=== PATIENT | female | born 1970 | race Caucasian/White ===

== ENCOUNTER 2018-07-02 14:16 | Emergency (ER) | payer OTHER ==
[~2018-07-02] VITALS: Ht 175.3 cm; Wt 108.4 kg
[2018-07-02 14:50] LABS: Source, Urine Clean Catch
[2018-07-02 14:55] LABS: Blood, Urine 1+ (Neg); Glucose Qualitative, Urine Neg (Neg); Ketones, Urine 1+ (Neg); Leukocyte Esterase, Urine 1+ (Neg); Nitrite, Urine Neg (Neg); Protein, Urine 2+ (Neg); Specific Gravity, Urine 1.015 (1.003-1.022); Urobilinogen, Urine 3+ (Normal)
[2018-07-02 15:01] LABS: BASOPHILS ABSOLUTE AUTO 0.03 K/mm3 (0.00-0.23); BASOPHILS PERCENT AUTO 1 % (0-2); EOSINOPHILS ABSOLUTE AUTO 0.05 K/mm3 (0.00-0.68); EOSINOPHILS PERCENT AUTO 1 % (0-6); Hematocrit 43.8 % (33.0-51.0); Hemoglobin 14.8 g/dL (11.5-16.0); IMMATURE GRAN ABSOLUTE AUTO 0.01 K/mm3 (0.00-0.10); IMMATURE GRAN PERCENT AUTO 0 % (0-1); LYMPHOCYTES ABSOLUTE AUTO 1.28 K/mm3 (0.84-5.20); LYMPHOCYTES PERCENT AUTO 31 % (21-46); MONOCYTES ABSOLUTE AUTO 0.41 K/mm3 (0.16-1.47); MONOCYTES PERCENT AUTO 10 % (4-13); Mean Corpuscular HGB 39.8 pg (26.0-34.0); Mean Corpuscular HGB Conc 33.8 g/dL (31.5-36.5); Mean Corpuscular Volume 118 fL (80-100); Mean Platelet Volume 9.2 fL (9.1-12.4); NEUTROPHILS ABSOLUTE AUTO 2.37 K/mm3 (1.96-9.15); NEUTROPHILS PERCENT AUTO 57 % (41-73); Platelet Count 98 K/mm3 (150-400); RDW Coefficient Variation 15.3 % (11.7-14.2); Red Blood Cell Count 3.72 M/mm3 (3.80-5.20); White Blood Cell Count 4.15 K/mm3 (4.00-11.30)
[2018-07-02 15:08] LABS: Appearance, Urine Clear (Clear); Bilirubin, Urine 1+ (Neg); Color, Urine Amber (P-Yellow); U Amphetamine Screen Not Detected; U Barbituate Screen Not Detected; U Benzodiazapine Screen Not Detected; U Buprenorphine Screen Not Detected; U Cannabinoids Screen Not Detected; U Cocaine Screen Not Detected; U Methadone Screen Not Detected; U Methamphetamine Screen Not Detected; U Opiates Screen Not Detected; U Oxycodone Screen Not Detected; U Phencyclidine Screen Not Detected; U Propoxyphene Screen Not Detected
[2018-07-02 15:26] LABS: Alanine Aminotransfer (ALT/SGP 234 U/L (12-78); Albumin, Blood 3.6 g/dL (3.4-5.0); Albumin/Globulin Ratio 0.9 (0.8-1.8); Alk Phos 261 U/L (50-136); Anion Gap 18 mmol/L (6-16); Aspartate Aminotrans (AST/SGOT 567 U/L (12-37); Bilirubin, Total 1.7 mg/dL (0.1-1.0); Blood Urea Nitrogen 9 mg/dL (8-24); Bun/Creatinine Ratio 10.5 (12.0-20.0); CO2, Blood 23 mmol/L (21-32); Calcium, Blood 8.6 mg/dL (8.5-10.1); Chloride, Blood 100 mmol/L (98-108); Creatinine, Blood 0.86 mg/dL (0.40-1.00); Ethanol (Alcohol), Blood, Med 218 mg/dL; Globulin, Blood 3.9 g/dL (2.2-4.0); Glomerular Filtration Rate >60 (60-); Glucose, Blood 106 mg/dL (70-99); Potassium, Blood 4.2 mmol/L (3.5-5.5); Salicylate <1.7 mg/dL (2.8-20.0); Sodium, Blood 141 mmol/L (136-145); Total Protein, Blood 7.5 g/dL (6.4-8.2)
[2018-07-02 15:31] LABS: Acetaminophen, Random <2.0 ug/mL (10.0-30.0)
[2018-07-02 15:38] LABS: Red Blood Cells, Urine 0-2 /hpf (0-2); Squamous Epithelial Cells Few /hpf (Few); White Blood Cells, Urine 0-2 /hpf (0-5)
[2018-07-02 15:39] LABS: Bacteria Mod /hpf
[2018-07-02] MEDS ORDERED: BENZ100A PO (17:08)
[2018-07-02] MEDS ORDERED: Anti-Diarrhea2 MG PO (17:09)
[2018-07-02] MEDS ORDERED: Ipratropium Bro15 ML INH (17:09)
[2018-07-02] MEDS ORDERED: GUAI600T33 PO (17:10)
[2018-07-02] MEDS ORDERED: ONDA4 PO (17:10)
[2018-07-02] MEDS ORDERED: OXYC5 PO (17:11)
[2018-07-02] MEDS ORDERED: ONDA4ODT MM (17:19)
[2018-07-02] MEDS ORDERED: CHLO25 PO (17:19)
[2018-07-02] MEDS ORDERED: CITA20 PO (17:19)
[2018-07-02] MEDS ORDERED: Neurontin 100100 MG PO (17:20)
== END 2018-07-02 18:00 | disposition home or self-care (01) ==
LOC: ER 14:16
PROVIDERS: Physician Assistant
DX: F32.9 Major depressive disorder, single episode, unspecified (principal); F10.229 Alcohol dependence with intoxication, unspecified; Y90.7 Blood alcohol level of 200-239 mg/100 ml
CPT/HCPCS: 36415; 80053; 81001; 81025; 84443; 85025; 87086; 93005; 93010; 99285-25; G0480; Q3014

== ENCOUNTER → 2020-03-11 | Outpatient (CLI) | payer OTHER ==
[~2020-03-11] MED LIST: Anti-Diarrhea2 MG PO; BENZ100A PO; CHLO25 PO; CITA20 PO; GUAI600T33 PO; Ipratropium Bro15 ML INH; Neurontin 100100 MG PO; ONDA4 PO; ONDA4ODT MM; OXYC5 PO
== END | disposition home or self-care (01) ==
LOC: LAB SHORT 10:15 → LAB 10:15
DX: N30.90 Cystitis, unspecified without hematuria (principal)
CPT/HCPCS: 87077; 87086; 87186

== ENCOUNTER 2020-08-02 15:43 | Observation (INO) | payer OTHER ==
[~2020-08-02] VITALS: Ht 172.7 cm; Wt 88.5 kg
[2020-08-02 16:37] LABS: BASOPHILS ABSOLUTE AUTO 0.04 K/mm3 (0.00-0.23); BASOPHILS PERCENT AUTO 1 % (0-2); EOSINOPHILS ABSOLUTE AUTO 0.09 K/mm3 (0.00-0.68); EOSINOPHILS PERCENT AUTO 1 % (0-6); Hematocrit 44.9 % (33.0-51.0); Hemoglobin 14.9 g/dL (11.5-16.0); IMMATURE GRAN ABSOLUTE AUTO 0.01 K/mm3 (0.00-0.10); IMMATURE GRAN PERCENT AUTO 0 % (0-1); LYMPHOCYTES ABSOLUTE AUTO 3.24 K/mm3 (0.84-5.20); LYMPHOCYTES PERCENT AUTO 43 % (21-46); MONOCYTES ABSOLUTE AUTO 0.37 K/mm3 (0.16-1.47); MONOCYTES PERCENT AUTO 5 % (4-13); Mean Corpuscular HGB 31.1 pg (26.0-34.0); Mean Corpuscular HGB Conc 33.2 g/dL (31.5-36.5); Mean Corpuscular Volume 94 fL (80-100); Mean Platelet Volume 8.8 fL (9.1-12.4); NEUTROPHILS ABSOLUTE AUTO 3.81 K/mm3 (1.96-9.15); NEUTROPHILS PERCENT AUTO 50 % (41-73); Platelet Count 263 K/mm3 (150-400); RDW Coefficient Variation 14.3 % (11.7-14.2); RDW Standard Deviation 49.7 fL (35.1-46.3); Red Blood Cell Count 4.79 M/mm3 (3.80-5.20); White Blood Cell Count 7.56 K/mm3 (4.00-11.30)
[2020-08-02 17:33] LABS: Alanine Aminotransfer (ALT/SGP 23 U/L (12-78); Albumin, Blood 3.9 g/dL (3.4-5.0); Alk Phos 106 U/L (50-136); Anion Gap 6 mmol/L (6-16); Aspartate Aminotrans (AST/SGOT 19 U/L (12-37); Bilirubin, Total 0.3 mg/dL (0.1-1.0); Blood Urea Nitrogen 16 mg/dL (8-24); Bun/Creatinine Ratio 20.1 (12.0-20.0); CO2, Blood 26 mmol/L (21-32); Calcium, Blood 8.4 mg/dL (8.5-10.1); Chloride, Blood 110 mmol/L (98-108); Ethanol (Alcohol), Blood, Med 496 mg/dL; Globulin, Blood 3.9 g/dL (2.2-4.0); Glomerular Filtration Rate >60 (60-); Glucose, Blood 127 mg/dL (70-99); Potassium, Blood 3.7 mmol/L (3.5-5.5); Salicylate 2.2 mg/dL (2.8-20.0); Sodium, Blood 142 mmol/L (136-145); Total Protein, Blood 7.8 g/dL (6.4-8.2)
[2020-08-02 17:34] LABS: Acetaminophen, Random <2.0 ug/mL (10.0-30.0)
[2020-08-02] MEDS ORDERED: TRAZ50 PO (18:39)
[2020-08-02] MEDS ORDERED: CITA20 PO (18:39)
[2020-08-03 01:28] LABS: Source, Urine Clean Catch
[2020-08-03 01:32] LABS: Bilirubin, Urine Neg (Neg); Blood, Urine 1+ (Neg); Glucose Qualitative, Urine Neg (Neg); Ketones, Urine Neg (Neg); Leukocyte Esterase, Urine 2+ (Neg); Nitrite, Urine Neg (Neg); Protein, Urine Neg (Neg); Specific Gravity, Urine 1.015 (1.003-1.022); Urobilinogen, Urine NORM (Normal)
[2020-08-03 01:33] LABS: Appearance, Urine Clear (Clear); Color, Urine Yellow (P-Yellow)
[2020-08-03 01:40] LABS: Bacteria Mod /hpf; Red Blood Cells, Urine 0-2 /hpf (0-2); Squamous Epithelial Cells Few /hpf (Few)
[2020-08-03 01:42] LABS: U Amphetamine Screen Not Detected; U Barbituate Screen Not Detected; U Benzodiazapine Screen Not Detected; U Buprenorphine Screen Not Detected; U Cannabinoids Screen Not Detected; U Cocaine Screen Not Detected; U Methadone Screen Not Detected; U Methamphetamine Screen Not Detected; U Opiates Screen Not Detected; U Oxycodone Screen Not Detected; U Phencyclidine Screen Not Detected; U Propoxyphene Screen Not Detected
[2020-08-04 11:52] LABS: Influenza A, PCR NEGATIVE (NEGATIVE); Influenza B, PCR NEGATIVE (NEGATIVE); Resp Syncytial Virus, PCR NEGATIVE (NEGATIVE); SARS-Cov-2 (COVID-19) PCR, MMC NEGATIVE (NEGATIVE)
== END 2020-08-04 14:15 ==
LOC: ER 15:43 → EOR 15:44
PROVIDERS: Emergency Medicine; Physician Assistant; ADMIT Emergency Medicine
DX: F33.2 Major depressive disorder, recurrent severe without psychotic features (principal); R45.851 Suicidal ideations; F10.229 Alcohol dependence with intoxication, unspecified; F10.239 Alcohol dependence with withdrawal, unspecified; I10 Essential (primary) hypertension; Z20.822 Contact with and (suspected) exposure to COVID-19; Z59.0 Homelessness
CPT/HCPCS: 0241U; 36415; 80053; 81001; 81025; 85025; 87086; 99285; A9270; G0378; G0480; Q3014

== ENCOUNTER 2020-08-16 17:10 | Observation (INO) | payer OTHER ==
[~2020-08-16] VITALS: Ht 175.3 cm; Wt 120.2 kg
[~2020-08-16 17:10] MED LIST changes: +TRAZ50 PO
[2020-08-16] MEDS ORDERED: ARIP10 PO (17:57)
[2020-08-16] MEDS ORDERED: Vivitrol380 MG (17:58)
[2020-08-16 18:10] LABS: BASOPHILS ABSOLUTE AUTO 0.03 K/mm3 (0.00-0.23); BASOPHILS PERCENT AUTO 1 % (0-2); EOSINOPHILS PERCENT AUTO 2 % (0-6); Hematocrit 42.9 % (33.0-51.0); Hemoglobin 14.2 g/dL (11.5-16.0); IMMATURE GRAN ABSOLUTE AUTO 0.02 K/mm3 (0.00-0.10); IMMATURE GRAN PERCENT AUTO 0 % (0-1); LYMPHOCYTES ABSOLUTE AUTO 1.69 K/mm3 (0.84-5.20); LYMPHOCYTES PERCENT AUTO 28 % (21-46); MONOCYTES ABSOLUTE AUTO 0.37 K/mm3 (0.16-1.47); MONOCYTES PERCENT AUTO 6 % (4-13); Mean Corpuscular HGB 31.1 pg (26.0-34.0); Mean Corpuscular HGB Conc 33.1 g/dL (31.5-36.5); Mean Corpuscular Volume 94 fL (80-100); Mean Platelet Volume 9.1 fL (9.1-12.4); NEUTROPHILS ABSOLUTE AUTO 3.84 K/mm3 (1.96-9.15); NEUTROPHILS PERCENT AUTO 64 % (41-73); Platelet Count 201 K/mm3 (150-400); RDW Coefficient Variation 13.4 % (11.7-14.2); RDW Standard Deviation 46.5 fL (35.1-46.3); Red Blood Cell Count 4.56 M/mm3 (3.80-5.20); White Blood Cell Count 6.05 K/mm3 (4.00-11.30)
[2020-08-16 18:56] LABS: Alanine Aminotransfer (ALT/SGP 21 U/L (12-78); Albumin/Globulin Ratio 1.1 (0.8-1.8); Alk Phos 110 U/L (50-136); Anion Gap 5 mmol/L (6-16); Aspartate Aminotrans (AST/SGOT 16 U/L (12-37); Bilirubin, Total 0.2 mg/dL (0.1-1.0); Blood Urea Nitrogen 14 mg/dL (8-24); Bun/Creatinine Ratio 17.1 (12.0-20.0); CO2, Blood 31 mmol/L (21-32); Calcium, Blood 8.9 mg/dL (8.5-10.1); Chloride, Blood 106 mmol/L (98-108); Creatinine, Blood 0.82 mg/dL (0.40-1.00); Ethanol (Alcohol), Blood, Med 268 mg/dL; Globulin, Blood 3.8 g/dL (2.2-4.0); Glomerular Filtration Rate >60 (60-); Glucose, Blood 93 mg/dL (70-99); Potassium, Blood 3.7 mmol/L (3.5-5.5); Salicylate 1.9 mg/dL (2.8-20.0); Sodium, Blood 142 mmol/L (136-145); Total Protein, Blood 7.8 g/dL (6.4-8.2)
[2020-08-16 19:08] LABS: Acetaminophen, Random <2.0 ug/mL (10.0-30.0)
[2020-08-17 00:52] LABS: Source, Urine Clean Catch
[2020-08-17 06:39] LABS: U Amphetamine Screen Not Detected; U Barbituate Screen Not Detected; U Benzodiazapine Screen DETECTED; U Buprenorphine Screen Not Detected; U Cannabinoids Screen Not Detected; U Cocaine Screen Not Detected; U Methadone Screen Not Detected; U Methamphetamine Screen Not Detected; U Opiates Screen Not Detected; U Oxycodone Screen Not Detected; U Phencyclidine Screen Not Detected; U Propoxyphene Screen Not Detected
[2020-08-17 06:40] LABS: Appearance, Urine Clear (Clear); Bilirubin, Urine Neg (Neg); Blood, Urine Neg (Neg); Color, Urine Yellow (P-Yellow); Glucose Qualitative, Urine Neg (Neg); Ketones, Urine Neg (Neg); Leukocyte Esterase, Urine Neg (Neg); Nitrite, Urine Neg (Neg); Protein, Urine Neg (Neg); Urobilinogen, Urine NORM (Normal)
== END 2020-08-18 10:00 | disposition home or self-care (01) ==
LOC: ER 17:10 → EOR 17:11
PROVIDERS: Physician Assistant; ADMIT Emergency Medicine
DX: F33.2 Major depressive disorder, recurrent severe without psychotic features (principal); R45.851 Suicidal ideations; F10.229 Alcohol dependence with intoxication, unspecified; I10 Essential (primary) hypertension; E66.9 Obesity, unspecified; Y90.8 Blood alcohol level of 240 mg/100 ml or more; Z59.0 Homelessness; Z68.39 Body mass index [BMI] 39.0-39.9, adult
CPT/HCPCS: 80053; 81003; 85025; 99285; A9270; G0378; G0480; Q3014

== ENCOUNTER 2021-02-08 18:14 | Emergency (ER) | payer OTHER ==
[~2021-02-08] VITALS: Ht 175.3 cm; Wt 99.8 kg
[~2021-02-08 18:14] MED LIST changes: +ARIP10 PO; +Vivitrol380 MG
== END 2021-02-08 22:37 | disposition home or self-care (01) ==
LOC: ER 18:14
DX: F10.239 Alcohol dependence with withdrawal, unspecified (principal); F41.9 Anxiety disorder, unspecified; I10 Essential (primary) hypertension; F17.200 Nicotine dependence, unspecified, uncomplicated; Z79.899 Other long term (current) drug therapy
CPT/HCPCS: 36415; 96374; 96375; 99284-25; A9270; J2060; J2560; J7030

== ENCOUNTER 2023-03-26 08:49 | Emergency (ER) | payer OTHER ==
[~2023-03-26] VITALS: Ht 175.3 cm; Wt 140.6 kg
[2023-03-26] MEDS ORDERED: SERT25 (09:30)
[2023-03-26] MEDS ORDERED: HYDPAM25 (09:30)
[2023-03-26] MEDS ORDERED: DYAZIDE 37.5-21 EACH (09:30)
[2023-03-26] MEDS ORDERED: LISI5 (09:31)
[2023-03-26 10:04] LABS: BASOPHILS ABSOLUTE AUTO 0.03 K/mm3 (0.00-0.23); BASOPHILS PERCENT AUTO 1 % (0-2); EOSINOPHILS ABSOLUTE AUTO 0.04 K/mm3 (0.00-0.68); EOSINOPHILS PERCENT AUTO 1 % (0-6); Hematocrit 40.9 % (33.0-51.0); Hemoglobin 13.2 g/dL (11.5-16.0); IMMATURE GRAN ABSOLUTE AUTO 0.01 K/mm3 (0.00-0.10); IMMATURE GRAN PERCENT AUTO 0 % (0-1); LYMPHOCYTES ABSOLUTE AUTO 1.13 K/mm3 (0.84-5.20); LYMPHOCYTES PERCENT AUTO 23 % (21-46); MONOCYTES ABSOLUTE AUTO 0.34 K/mm3 (0.16-1.47); MONOCYTES PERCENT AUTO 7 % (4-13); Mean Corpuscular HGB 33.1 pg (26.0-34.0); Mean Corpuscular HGB Conc 32.3 g/dL (31.5-36.5); Mean Corpuscular Volume 103 fL (80-100); Mean Platelet Volume 9.1 fL (9.1-12.4); NEUTROPHILS ABSOLUTE AUTO 3.33 K/mm3 (1.96-9.15); NEUTROPHILS PERCENT AUTO 68 % (41-73); Platelet Count 212 K/mm3 (150-400); RDW Coefficient Variation 20.8 % (11.7-14.2); RDW Standard Deviation 78.3 fL (35.1-46.3); Red Blood Cell Count 3.99 M/mm3 (3.80-5.20); White Blood Cell Count 4.88 K/mm3 (4.00-11.30)
[2023-03-26 10:16] LABS: Source, Urine Straight Cath
[2023-03-26 10:21] LABS: Bilirubin, Urine Neg (Neg); Blood, Urine 2+ (Neg); Glucose Qualitative, Urine Neg (Neg); Ketones, Urine Neg (Neg); Leukocyte Esterase, Urine 1+ (Neg); Nitrite, Urine Pos (Neg); Protein, Urine Neg (Neg); Urobilinogen, Urine NORM (Normal)
[2023-03-26 10:28] LABS: Albumin/Globulin Ratio 0.8 (0.8-1.8); Bilirubin, Total 0.3 mg/dL (0.1-1.0); Bun/Creatinine Ratio 11.2 (12.0-20.0); Calcium, Blood 8.9 mg/dL (8.5-10.1); Creatinine, Blood 0.99 mg/dL (0.40-1.00); Globulin, Blood 3.8 g/dL (2.2-4.0); Potassium, Blood 5.1 mmol/L (3.5-5.5); Total Protein, Blood 6.8 g/dL (6.4-8.2)
[2023-03-26 10:28] LABS: Appearance, Urine Hazy (Clear); Color, Urine Yellow (P-Yellow)
[2023-03-26 10:29] LABS: Squamous Epithelial Cells Few /hpf (Few)
[2023-03-26 10:30] LABS: Amorphous Mod (0-Heavy); Bacteria Many /hpf
[2023-03-26] MEDS ORDERED: CEFU500T30 PO (16:45)
[2023-03-26] MEDS ORDERED: ONDA4ODT MM (16:45)
[2023-03-26] MEDS ORDERED: FOLI1 PO (17:08)
[2023-03-26] MEDS ORDERED: B-1100 M1 PO (17:08)
[2023-03-26 18:10] VITALS: BP 100/69
== END 2023-03-26 18:16 | disposition home or self-care (01) ==
LOC: ER 08:49
PROVIDERS: Student in an Organized Health Care Education/Training Program
DX: F10.129 Alcohol abuse with intoxication, unspecified (principal); G62.1 Alcoholic polyneuropathy; R53.1 Weakness; N39.0 Urinary tract infection, site not specified; E86.0 Dehydration; G47.30 Sleep apnea, unspecified; E88.09 Other disorders of plasma-protein metabolism, not elsewhere classified; R60.0 Localized edema; I10 Essential (primary) hypertension; J44.9 Chronic obstructive pulmonary disease, unspecified; F17.210 Nicotine dependence, cigarettes, uncomplicated; F32.A Depression, unspecified; Z79.899 Other long term (current) drug therapy; Z91.81 History of falling
CPT/HCPCS: 80053; 81001; 85025; 87077; 87086; 87186; 93005; 93010; 96361; 96374; 99284-25; A9270; J2405; J7030

== ENCOUNTER 2024-06-01 09:54 | Inpatient (IN) | payer OTHER ==
[~2024-06-01] VITALS: Ht 177.8 cm; Wt 178.4 kg
[2024-06-01] VITALS (19 sets, daily range): BP systolic 94–156; BP diastolic 60–128
[~2024-06-01 09:54] MED LIST changes: +B-1100 M1 PO; +CEFU500T30 PO; +DYAZIDE 37.5-21 EACH; +FOLI1 PO; +HYDPAM25; +LISI5; +SERT25
[2024-06-01] MEDS ORDERED: Thiamine HCl 500 MG in NS 100 ML IV ONE (10:30)
[2024-06-01 10:59] LABS: Source, Urine Straight Cath
[2024-06-01 11:03] LABS: Appearance, Urine Cloudy (Clear); Blood, Urine 5+ (Neg); Color, Urine Amber (P-Yellow); Glucose Qualitative, Urine Neg (Neg); Ketones, Urine 1+ (Neg); Leukocyte Esterase, Urine 3+ (Neg); Nitrite, Urine Pos (Neg); Protein, Urine 3+ (Neg); Urobilinogen, Urine 3+ (Normal)
[2024-06-01 11:16] LABS: Bilirubin, Urine 1+ (Neg)
[2024-06-01 11:17] LABS: Bacteria Many /hpf; Hyaline Casts 50-100 /lpf (0-2); Red Blood Cells, Urine 50-100 /hpf (0-2); Squamous Epithelial Cells Many /hpf (Few); Transitional Epithelial Cells Rare /hpf (0-Rare); White Blood Cells, Urine 25-50 /hpf (0-5)
[2024-06-01 11:28] LABS: BASOPHILS ABSOLUTE AUTO 0.04 K/mm3 (0.00-0.23); BASOPHILS PERCENT AUTO 1 % (0-2); EOSINOPHILS PERCENT AUTO 3 % (0-6); Hematocrit 46.2 % (33.0-51.0); Hemoglobin 14.6 g/dL (11.5-16.0); IMMATURE GRAN ABSOLUTE AUTO 0.02 K/mm3 (0.00-0.10); IMMATURE GRAN PERCENT AUTO 1 % (0-1); LYMPHOCYTES ABSOLUTE AUTO 1.06 K/mm3 (0.84-5.20); LYMPHOCYTES PERCENT AUTO 26 % (21-46); MONOCYTES ABSOLUTE AUTO 0.43 K/mm3 (0.16-1.47); MONOCYTES PERCENT AUTO 11 % (4-13); Mean Corpuscular HGB 31.7 pg (26.0-34.0); Mean Corpuscular HGB Conc 31.6 g/dL (31.5-36.5); Mean Corpuscular Volume 100 fL (80-100); Mean Platelet Volume 11.2 fL (9.1-12.4); NEUTROPHILS PERCENT AUTO 59 % (41-73); NRBC ABSOLUTE 0.02 K/mm3 (0.00-0.02); NRBC Auto 0.5 /100 WBC (0.0-0.2); Platelet Count 92 K/mm3 (150-400); RDW Coefficient Variation 16.6 % (11.7-14.2); RDW Standard Deviation 60.9 fL (35.1-46.3); White Blood Cell Count 4.05 K/mm3 (4.00-11.30)
[2024-06-01] MEDS ORDERED: Piperacillin/Tazobactam Sod 3.375 GM in NS 100 ML IV ONE (11:30)
[2024-06-01] MEDS ORDERED: Vancomycin HCL 2,000 MG in NS 520 ML IV ONE (11:50)
[2024-06-01 11:52] LABS: Free Thyroxine 1.01 ng/dL (0.70-1.60); Magnesium, Blood 1.8 mg/dL (1.6-2.4)
[2024-06-01 11:54] LABS: Albumin, Blood 3.1 g/dL (3.4-5.0); Albumin/Globulin Ratio 0.8 (0.8-1.8); Bilirubin, Total 2.2 mg/dL (0.1-1.0); Bun/Creatinine Ratio 14.3 (12.0-20.0); Calcium, Blood 9.9 mg/dL (8.5-10.1); Creatinine, Blood 1.26 mg/dL (0.40-1.00); Globulin, Blood 3.9 g/dL (2.2-4.0); Phosphorus, Blood 3.6 mg/dL (2.5-4.9); Potassium, Blood 5.2 mmol/L (3.5-5.5); Thyroid Stimulating Hormone 6.91 uIU/mL (0.360-4.800)
[2024-06-01] MEDS ORDERED: Furosemide 10 MG/ML 4ML Vial IV ONE (11:55)
[2024-06-01 12:05] LABS: International Normalized Ratio 1.84; Prothrombin Time Results 18.8 Sec (9.7-11.5)
[2024-06-01] MEDS ORDERED: Lactulose 20 GM/30 ML UDC PO ONE ×2 (12:05→12:15)
[2024-06-01 12:07] LABS: Influenza A, PCR NEGATIVE (NEGATIVE); Influenza B, PCR NEGATIVE (NEGATIVE); Resp Syncytial Virus, PCR NEGATIVE (NEGATIVE); SARS-Cov-2 (COVID-19) PCR, MMC NEGATIVE (NEGATIVE)
[2024-06-01] MEDS ORDERED: RifAXIMin 550 MG Tablet PO ONE (12:15)
[2024-06-01] MEDS ORDERED: Lactulose 20 GM/30 ML UDC PR ONE ×2 (12:30→12:35)
[2024-06-01] MEDS ORDERED: NS 1,000 ML BAG IR SCH (12:55)
[2024-06-01 13:14] LABS: Bicarbonate Venous 20.6 mmol/L (24.0-30.0); PCO2 Venous 39.5 mmHg (38-42)
[2024-06-01 13:15] LABS: pH Blood Venous 7.33 (7.34-7.37)
[2024-06-01] MEDS ORDERED: NS 1,000 ML IV SCH ×3 (13:40→14:15)
[2024-06-01] MEDS ORDERED: Prochlorperazine Edisylate 10 mg Vial IV PRN (14:15)
[2024-06-01] MEDS ORDERED: FLU VACC TS2024-25(6MOS UP)/PF 45 MCG/0.5 ML SYRINGE IM SCH (14:15)
[2024-06-01] MEDS ORDERED: LORazepam 2 MG/ML 1ML Injection IV PRN (14:35)
[2024-06-01] MEDS ORDERED: CefTRIAXone Sodium 2,000 MG in NS 100 ML IV SCH (15:00)
[2024-06-01] MEDS ORDERED: Levothyroxine Sodium 100 MCG Vial IV SCH ×2 (15:00→16:00)
[2024-06-01] MEDS ORDERED: Lactulose 20 GM/30 ML UDC PO SCH (17:00)
[2024-06-01] MEDS ORDERED: Thiamine HCl 500 MG in NS 100 ML IV SCH (18:00)
[2024-06-01] MEDS ORDERED: Labetalol HCL 5 MG/ML 4ML Injection (Single Dose) IV PRN (18:30)
--- NOTE | 2024-06-01 18:51 | NUR ---
ASSUMED CARE/SUMMARY PT ARRIVED TO ICU 10 @ 1744 VIA PROCESS ENGINEERING MANAGER AND RT. ON BIPAP WITH SETTINGS OF 14/10 AND 35%, O2 SATURATIONS > 92%. PLACED ON 5 LPM O2 VIA NC WITH O2 SATURATIONS > 92%. CONTINOUS CARDIAC MONITORING IN PLACE SHOWS STACH WITH HR IN 100'S-110'S. HYPERTENSIVE, LABETALOL ORDERED PER HOSPITALIST. TEMP CHO IN PLACE DRAINING YELLOW/BLOOD TINGED URINE TO GRAVITY. MILK SAMPLER NURSE TO OBTAIN PHOTOS OF WOUNDS. BEDSIDE REPORT COMPLETED WITH SLIM LOZANO.
[2024-06-01] MEDS ORDERED: Sennosides 8.6 MG Tab PO SCH (21:00)
--- NOTE | 2024-06-01 22:32 | NUR ---
UPDATE ASSUMED CARE OF PT AT 1900, PT AWAKE AND ALERT, ORIENTED TO SELF, CONFUSED TO PLACE AND SITUATION, STATES SHE IS AT THE [facility] AND NEEDS TO GO TO THE CAR TO GO HOME, STATES AND THE DATE March AND THE YEAR 4, EASILY REORIENTED BUT FORGETFUL. FOLLOWS COMMANDS, SINUS ARRYTHMIA NOTED TACHYCARDIA 110-120S, O2 A 5 LP, NC WITH SPO2>90%, BP MAP >65, CUFF CHANGED TO RIGHT FOREARM DUE TO PT MOVING AND BENDING ARM AND CUFF NOT EFFECTIVE ON UPPER ARM, LEFT FOREARM PIV PATENT, POWERGLIDE TO LEFT UPPERARM PLACED AND PATENT, LACTULOSE PO GIVEN, PT SWALLOWED WITHOUT DIFFICULTY, AFEBRILE, RESP UNLABORED AT REST, NOTED SOB WITH TALKING AND REPOSTIONING, TEMP SENSE CHO CATH PATENT AND DRAINING CLEAR YELLOW URINE TO GRAVIY, NOTED +4 GENERALIZED EDEMA, ABD FOLDS RED AND EXCORIATED, INTERDRY PLACED IN FOLDS, AT 2029 CBG 65, PT GIVEN 240 ML CLEAR ENSURE AND DRANK 100%, CALLED AND NOTIFIED MD WITH NO NEW ORDERS RECEIVED, 2199, SPO2 87%, PT LETHARGIC AND DIFFICULT TO AROUSE, OPENS EYES WITH TACTILE STIMULI AND MOANS, CLOSES EYES WHEN STIMULI STOPPED, PT REPOSITIONED WITH HOB UP 90 DEGREES AND LIGHTS TURNED ON, PT OPENS EYES AND FOLLOWS COMMANDS AND STATES TO STOP AND LEAVE HER ALONE, THEN CLOSES EYES AGAIN, NOTED APNEA 2-5 SECONDS WITH SHALLOW RESP, CPAP PLACED ON FIO2 35%, 23/03, CBG CHECKED 85, SPO2 >90% ON CPAP, NO DISTRESS NOTED, HOB UP 35 DEGREES, SIDE RAILS UP X2, CALL LIGHT IN REACH
[2024-06-01] MEDS ORDERED: NS 0 ML IV ONE (23:44)
[2024-06-02] VITALS (41 sets, daily range): BP systolic 92–138; BP diastolic 60–116
[2024-06-02 06:00] LABS: Base Excess Venous 6.2 mmol/L; Bicarbonate Venous 29.5 mmol/L (24.0-30.0); PCO2 Venous 39.4 mmHg (38-42); pH Blood Venous 7.49 (7.34-7.37)
[2024-06-02 06:15] LABS: BASOPHILS ABSOLUTE AUTO 0.04 K/mm3 (0.00-0.23); BASOPHILS PERCENT AUTO 1 % (0-2); EOSINOPHILS ABSOLUTE AUTO 0.17 K/mm3 (0.00-0.68); EOSINOPHILS PERCENT AUTO 4 % (0-6); Hematocrit 40.2 % (33.0-51.0); Hemoglobin 13.4 g/dL (11.5-16.0); IMMATURE GRAN PERCENT AUTO 0 % (0-1); LYMPHOCYTES ABSOLUTE AUTO 0.97 K/mm3 (0.84-5.20); LYMPHOCYTES PERCENT AUTO 24 % (21-46); MONOCYTES ABSOLUTE AUTO 0.45 K/mm3 (0.16-1.47); MONOCYTES PERCENT AUTO 11 % (4-13); Mean Corpuscular HGB 31.5 pg (26.0-34.0); Mean Corpuscular HGB Conc 33.3 g/dL (31.5-36.5); Mean Platelet Volume 10.1 fL (9.1-12.4); NEUTROPHILS PERCENT AUTO 60 % (41-73); Platelet Count 121 K/mm3 (150-400); RDW Coefficient Variation 16.3 % (11.7-14.2); RDW Standard Deviation 56.7 fL (35.1-46.3); Red Blood Cell Count 4.25 M/mm3 (3.80-5.20); White Blood Cell Count 4.03 K/mm3 (4.00-11.30)
[2024-06-02 06:40] LABS: Albumin, Blood 2.8 g/dL (3.4-5.0); Albumin/Globulin Ratio 0.8 (0.8-1.8); Bilirubin, Total 1.8 mg/dL (0.1-1.0); Bun/Creatinine Ratio 14.7 (12.0-20.0); Calcium, Blood 9.3 mg/dL (8.5-10.1); Creatinine, Blood 1.16 mg/dL (0.40-1.00); Globulin, Blood 3.3 g/dL (2.2-4.0); Potassium, Blood 3.5 mmol/L (3.5-5.5); Total Protein, Blood 6.1 g/dL (6.4-8.2)
[2024-06-02 06:57] LABS: Mean Corpuscular Volume 95 fL (80-100)
--- NOTE | 2024-06-02 07:05 | NUR ---
SHIFT SUMMARY 8780 DR COLEMAN ON UNIT, NOTIFIED OF PT CONTINUED LETHARGY, VSS, AFEBRILE, REMAINS ON BIPAP FIO2 40%, 23/03, CHO PATENT AND DRAINING TO GRAVITY, VBG WNL, NO NEW ORDERS RECIEVED, HOB U P 45 DEGREES, SIDE RAILS UP X2 CALL LIGHT IN REACH
[2024-06-02] MEDS ORDERED: Enoxaparin 40 MG/0.4 ML SYR SC SCH (09:00)
[2024-06-02] MEDS ORDERED: Cosyntropin 0.25 MG / ML 1ML Vial IV ONE (14:05)
[2024-06-03] VITALS (22 sets, daily range): BP systolic 93–131; BP diastolic 67–106
[2024-06-03 04:00] LABS: BASOPHILS ABSOLUTE AUTO 0.03 K/mm3 (0.00-0.23); BASOPHILS PERCENT AUTO 1 % (0-2); EOSINOPHILS ABSOLUTE AUTO 0.17 K/mm3 (0.00-0.68); EOSINOPHILS PERCENT AUTO 4 % (0-6); Hematocrit 38.5 % (33.0-51.0); Hemoglobin 12.8 g/dL (11.5-16.0); IMMATURE GRAN ABSOLUTE AUTO 0.01 K/mm3 (0.00-0.10); IMMATURE GRAN PERCENT AUTO 0 % (0-1); LYMPHOCYTES ABSOLUTE AUTO 0.94 K/mm3 (0.84-5.20); LYMPHOCYTES PERCENT AUTO 22 % (21-46); MONOCYTES ABSOLUTE AUTO 0.42 K/mm3 (0.16-1.47); MONOCYTES PERCENT AUTO 10 % (4-13); Mean Corpuscular HGB 31.4 pg (26.0-34.0); Mean Corpuscular HGB Conc 33.2 g/dL (31.5-36.5); Mean Corpuscular Volume 95 fL (80-100); Mean Platelet Volume 10.1 fL (9.1-12.4); NEUTROPHILS ABSOLUTE AUTO 2.68 K/mm3 (1.96-9.15); NEUTROPHILS PERCENT AUTO 63 % (41-73); Platelet Count 111 K/mm3 (150-400); RDW Coefficient Variation 16.5 % (11.7-14.2); RDW Standard Deviation 57.2 fL (35.1-46.3); Red Blood Cell Count 4.07 M/mm3 (3.80-5.20); White Blood Cell Count 4.25 K/mm3 (4.00-11.30)
[2024-06-03 04:02] LABS: Base Excess Venous 7.4 mmol/L; PCO2 Venous 50.6 mmHg (38-42); pH Blood Venous 7.41 (7.34-7.37)
[2024-06-03] MEDS ORDERED: Cosyntropin 0.25 MG / ML 1ML Vial IV ONE ×2 (05:00→08:00)
--- NOTE | 2024-06-03 06:23 | NUR ---
SHIFT SUMMARY AFEBRILE, BP MAP>65, SA-AFIB RHYTHM 100S, PLACED ON BIPAP AT 2200 BY RT, FIO2 35%, TURNED AND REPOSITIONED EVERY 2 HOURS, RECTAL TUBE PATENT AND DRAINING LIQUID WATERY STOOL TO GRAVITY, CHO CATH PATENT AND DRAINING RIAZ URINE TO GRAVITY, PIV TO LEFT FOREARM AND PWERGLIDE TO LEFT UPPER ARM PATENT, NS INFUSING AT 100 ML/HR, PT REMAINS CONFUSED, IN NEED OF FREQUENT REORIENTATION TO PLACE, SITUATION, TIME AND DATE, SIDE RAILS UP X2 CALL LIGHT IN REACH
[2024-06-03 06:50] LABS: Albumin, Blood 2.5 g/dL (3.4-5.0); Albumin/Globulin Ratio 0.8 (0.8-1.8); Bilirubin, Total 1.5 mg/dL (0.1-1.0); Bun/Creatinine Ratio 13.2 (12.0-20.0); Calcium, Blood 8.7 mg/dL (8.5-10.1); Creatinine, Blood 1.06 mg/dL (0.40-1.00); Globulin, Blood 3.3 g/dL (2.2-4.0); Potassium, Blood 3.2 mmol/L (3.5-5.5); Total Protein, Blood 5.8 g/dL (6.4-8.2)
[2024-06-03] MEDS ORDERED: Potassium Chloride 20 MEQ TabCR PO ONE (08:00)
[2024-06-03] MEDS ORDERED: Metoprolol Tartrate 50 MG Tab PO SCH (12:00)
[2024-06-03] MEDS ORDERED: Hydrocortisone Sod Succinate 100 MG Vial IV SCH (12:00)
[2024-06-03] MEDS ORDERED: Lactulose 20 GM/30 ML UDC PO SCH (21:00)
[2024-06-04] VITALS (14 sets, daily range): BP systolic 82–130; BP diastolic 55–97
[2024-06-04 04:23] LABS: BASOPHILS ABSOLUTE AUTO 0.03 K/mm3 (0.00-0.23); BASOPHILS PERCENT AUTO 1 % (0-2); EOSINOPHILS ABSOLUTE AUTO 0.02 K/mm3 (0.00-0.68); EOSINOPHILS PERCENT AUTO 1 % (0-6); Hematocrit 36.7 % (33.0-51.0); Hemoglobin 12.2 g/dL (11.5-16.0); IMMATURE GRAN ABSOLUTE AUTO 0.01 K/mm3 (0.00-0.10); IMMATURE GRAN PERCENT AUTO 0 % (0-1); LYMPHOCYTES ABSOLUTE AUTO 0.56 K/mm3 (0.84-5.20); LYMPHOCYTES PERCENT AUTO 15 % (21-46); MONOCYTES ABSOLUTE AUTO 0.23 K/mm3 (0.16-1.47); MONOCYTES PERCENT AUTO 6 % (4-13); Mean Corpuscular HGB 31.4 pg (26.0-34.0); Mean Corpuscular HGB Conc 33.2 g/dL (31.5-36.5); Mean Corpuscular Volume 94 fL (80-100); Mean Platelet Volume 10.3 fL (9.1-12.4); NEUTROPHILS ABSOLUTE AUTO 2.83 K/mm3 (1.96-9.15); NEUTROPHILS PERCENT AUTO 77 % (41-73); Platelet Count 114 K/mm3 (150-400); RDW Coefficient Variation 16.9 % (11.7-14.2); RDW Standard Deviation 58.3 fL (35.1-46.3); Red Blood Cell Count 3.89 M/mm3 (3.80-5.20); White Blood Cell Count 3.68 K/mm3 (4.00-11.30)
[2024-06-04 04:35] LABS: Albumin, Blood 2.6 g/dL (3.4-5.0); Albumin/Globulin Ratio 0.8 (0.8-1.8); Bilirubin, Total 1.5 mg/dL (0.1-1.0); Bun/Creatinine Ratio 13.5 (12.0-20.0); Calcium, Blood 8.5 mg/dL (8.5-10.1); Creatinine, Blood 1.04 mg/dL (0.40-1.00); Globulin, Blood 3.3 g/dL (2.2-4.0); Magnesium, Blood 1.5 mg/dL (1.6-2.4); Potassium, Blood 3.5 mmol/L (3.5-5.5); Total Protein, Blood 5.9 g/dL (6.4-8.2)
[2024-06-04] MEDS ORDERED: Levothyroxine Sodium 0.05 MG Tab PO SCH (06:00)
--- NOTE | 2024-06-04 06:18 | NUR ---
SHIFT SUMMARY ASSUMED CARE OF PT AT 1900, PT AWAKE AND ALERT ORIENTED X4, FORGETFUL AT TIMES, FOLLOWS COMMANDS, ABLE TO MAKE NEEDS KNOWN, SR 80-90S, MAP >65, RESP EVEN AND UNLABORED ON 2 LPM NC, SPO2>90%, FEBRILE TMAX 99.7F, CHO PATENT AND DRAINING RIAZ URINE TO GRAVITY, RECTAL TUBE PATENT AND DRAINING TO GRAVITY, PT NAUSEATED AND VOMITING X2 THIS SHIFT, MEDICATED X1 WITH COMPAZINE PER EMAR AND EFFECTIVE, DENIES C/O PAIN OR SOB, POWERGLIDE TO RIGHT UPPER ARM AND LEFT UPPER ARM PATENT, SIDE RAILS UP X2 CALL LIGHT IN REACH 0615 CALL[address] AND SPOKE WITH DR COLEMAN, NOTIFIED OF AM LABS RESULTS MAG 1.5, AND POTASSIUM 3.5. STATES HE WILL LOOK AT CHART AND PLACE ORDERS
[2024-06-04] MEDS ORDERED: Magnesium Sulf 2 GM/Water 50ML 50 ML IV ONE (06:30)
[2024-06-04] MEDS ORDERED: Potassium Chloride 20 MEQ TabCR PO SCH (07:00)
--- NOTE | 2024-06-04 08:45 | NUR ---
PT WAS ASLEEP DURING BSR. THIAMINE STARTED, PT DROPPED SATS DURING SLEEP AND BIPAP PLACED. PT THEN AWAKENED AND ASKED FOR DINNER. TOLD THAT HER BREAKFAST IS HERE, DISORIENTED TO DAY OF THE WEEK. RECTAL TUBE IN PLACE, LUNA YOUNG. CHO TO GRAVITY.
--- NOTE | 2024-06-04 11:04 | NUR ---
IN TO SEE, DOWNGRADING TO MEDICAL STATUS. PT REMAINS FORGETFUL BUT REMEMBERS SHE IS IN THE HOSPITAL. WILL GET PT/OT TO WORK WITH HER AND WORK ON CASE MANAGEMENT.
--- NOTE | 2024-06-04 11:53 | NUR ---
REPOSITIONED FOR LUNCH TRAY, ORIENTED AT THIS TIME, ANSWERING QUESTIONS APPROPRIATELY. DENIES ANY COMPLAINTS, DISCUSSED THERAPY WITH HER, OCCUPATIONAL THERAPY ON THE WAY TO SEE.
--- NOTE | 2024-06-04 16:29 | NUR ---
NOTE FOR REFERENCE: SISTER IN TO SEE PATIENT, STATES THAT THE PATIENT HAS BEEN IN ABOUT 4 REHAB FACILITIES, DOESN'T ROUTINELY TAKE HER MEDICATIONS, IS A HOARDER AND HASN'T BEEN USING THE BATHROOM IN SOME TIME. SHE USUALLY SOILS HERSELF, MOVES FROM BED TO CHAIR AND THAT IS ALL. SHE WAS RECENTLY REMOVED FROM HER HOME BY THE [employer] FOR NON-COMPLIANCE. STAYED WITH HER MOTHER UNTIL THIS HOSPITALIZATION, MOTHER HAS BEEN UNABLE TO GET HER TO DO ANYTHING BESIDES SIT ON THE EDGE OF THE BED.
--- NOTE | 2024-06-04 17:57 | NUR ---
PT HAS BEEN SLEEPING OR COVERED UNDER THE BLANKETS FOR THE MAJORITY OF THE DAY, SHE WILL ANSWER WHEN SPOKEN TO. POWER GLIDES BILAT UPPER ARMS, ARMS AND LEGS AND TRUNK WITH EDEMA, TAUT. CHO CATH REMOVED, PUREWICK IN PLACE, RECTAL TUBE WITH 425ML OUT, WITH SOME LEAKING. ATE LUNCH AND BREAKFAST, ONLY WANTED FRUIT CUP FOR DINNER, TAKING IN WATER AND JUICE. MEDICATED ONCE WITH COMPAZINE FOR C/O NAUSEA. NO EMESIS. ASSISTS WITH TURNS WHEN ENCOURAGED. TELE DC'D. VSS.
[2024-06-04] MEDS ORDERED: Hydrocortisone 20 MG Tab PO SCH (18:00)
[2024-06-05 02:59] VITALS: BP 118/93
--- NOTE | 2024-06-05 05:06 | NUR ---
TRANSFER OF CARE A&OX4, OBEYS COMMANDS, ABLE TO MAKE NEEDS KNOWN, BEDREST AT THIS TIME FOR GENERAL WEAKNESS/DECONDITIONING, PT ASSISTING STAFF WITH REPOSITIONING IN BED. CONTINUOUS SPO2, SPO2 GREATER THAN 90% ON 1L O2 VIA NC, PT OCCASIONALLY DESATING INTO THE 80 S WHILE SLEEPING BUT QUICKLY RECOVERS, ASKED PT IN THE BEGINNING OF THE SHIFT IF THEY WANTED TO WEAR THEIR BIPAP WHILE THEY SLEPT AND THEY DECLINED, LATER IN THE NIGHT @ APPROX 0200 PT AGREED TO WEAR BIPAP, @ APPROX 0300 PT REQUESTING BREAK FROM BIPAP/PT SWITCHED BACK OVER TO NC. HR 80 S, BLE EDEMA, BUE EDEMA, BP STABLE WITH MAP GREATER THAN 65. PT REPORTED NAUSEA AT THE START OF THE SHIFT BUT DECLINED NEED FOR MEDICATION, RECTAL TUBE IN PLACE. PUREWICK IN PLACE TO CONTINUOUS LOW SUCTION, PT BLADDER SCANNED THIS SHIFT WITH A READING OF 286 @ APPROX 0300. PT HAVING MULTIPLE BRUISING ON UPPER EXTREMITIES, SCABS TO LEFT HAND AND WRIST, OPEN BILISTER TO LEFT ELBOW. REPORT GIVEN TO AVERY, SURGICAL FLOOR RN @ 0505, PT TRANSFERRED BY BED TO SURGICAL ROOM 211
--- NOTE | 2024-06-05 05:25 | NUR ---
TRANSFER PT TO [facility] FROM ICU 10 TO SURGICAL 211. REPORT TAKEN FROM [facility] AND THE [facility] HORSE STUD MANAGER TO ASSUME CARE OF PT.
[2024-06-05 05:38] VITALS: BP 121/85
[2024-06-05 07:14] VITALS: BP 120/90
[2024-06-05] MEDS ORDERED: Hydrocortisone 20 MG Tab PO SCH (09:00)
--- NOTE | 2024-06-05 13:24 | NUR ---
Pt discharging home tomorrow. No immediate needs identified.
--- NOTE | 2024-06-05 14:21 | NUR ---
REPORT GIVEN TO ALEE SMALLS TO ASSUME CARE AT THIS TIME.
[2024-06-05 14:33] VITALS: BP 140/97
--- NOTE | 2024-06-05 18:48 | NUR ---
ASSUMED PT CARE AT 1420 SUMMARY: NO ACUTE CHANGE SINCE RECEIVED REPORT. PT A/O, VSS. HAS HAD A FEW MORE LIQ BM'S AND REQUIRED ATTENDS CHANGES. PT DENIES ANY NEEDS TONIGHT. USING CALL LIGHT TO MAKE NEEDS KNOWN.
[2024-06-05 19:31] VITALS: BP 140/99
[2024-06-05] MEDS ORDERED: Lactulose 20 GM/30 ML UDC PO SCH (21:00)
[2024-06-05] MEDS ORDERED: Miconazole Nitrate 2% 85 GM PWD TOP SCH (21:00)
--- NOTE | 2024-06-06 05:12 | NUR ---
SHIFT SUMMARY AOX4. VSS. SPO2 >90% ON 2L O2, STATES SHE DOESNT WEAR O2 @BASELINE. BS DIM. E/U RESP. PT REPORTS "I KEEP SEEING A GIRL COME INTO MY RM & SIT IN THE CHAIR NEXT TO MY BED WHEN THE LIGHTS ARE OFF BUT THEN SHE DISAPPEARS WHEN THE LIGHTS ARE TURNED BACK ON. CALL LIGHT IN REACH.
[2024-06-06 05:16] VITALS: BP 148/115
[2024-06-06 07:46] VITALS: BP 140/102
[2024-06-06 15:47] VITALS: BP 147/108
--- NOTE | 2024-06-06 18:19 | NUR ---
SHIFT SUMMARY PT A&OX4 AND ANSWERS QUESTIONS APPROPRIATELY. PT RECEIVED SCHEDULED AND PRN MEDICATIONS WITH NO ADVERSE REACTIONS. PT SEEN BY DR TAO, MEDICALLY STABLE. PT VSS, NO COMPLAINTS OF CP/PRESSURE OR SOB. PT AMBULATED 2P ASSIST W/ FWW AND A GAIT BELT. NO ACUTE EVENTS AT THIS TIME. PT REPOSITIONED INDEPENDENTLY. PT LEFT IN A POSITION OF SAFETY WITH FALL PRECAUTIONS IN PLACE AND CALL LIGHT IN REACH.
[2024-06-06 19:29] VITALS: BP 134/99
[2024-06-06] MEDS ORDERED: Hydrocortisone 20 MG Tab PO SCH (21:00)
[2024-06-07 04:19] VITALS: BP 136/109
--- NOTE | 2024-06-07 04:29 | NUR ---
SHIFT SUMMARY PT RESTED T/O SHIFT. DENIES ANY PAIN DURING THE SHIFT. TOLERATING PO INTAKE, VOIDING. PT UP TO THE BSC, 2P ASST FWW AND GB. PT DENIES HAVING ANY HALLUCINATIONS DURING THE SHIFT. VSS. NO OTHER CONCERNS AT THIS TIME, CALL LIGHT WITHIN REACH
[2024-06-07 07:49] VITALS: BP 170/112
[2024-06-07] MEDS ORDERED: Lisinopril 10 MG Tab PO SCH (12:00)
[2024-06-07] MEDS ORDERED: Simethicone 80 MG Chew PO PRN (14:00)
[2024-06-07 14:29] VITALS: BP 146/116
--- NOTE | 2024-06-07 18:45 | NUR ---
SHIFT SUMMARY S/P HEPATIC ENCEPHALOPATHY, A/OX4, VSS, TOLERATING PO, IMPROVED TRANSFERRING TO BSC WITH SBA FWW AND GB, PENDING DC PLANNING FOR SNF. NO ACUTE EVENTS THIS SHIFT, CALL LIGHT IN REACH.
[2024-06-07 19:23] VITALS: BP 146/101
[2024-06-08 04:38] VITALS: BP 123/92
--- NOTE | 2024-06-08 05:32 | NUR ---
SHIFT SUMMARY NOC. PT A/O X4, PT UP TO BSC WITH 1 PERSON MINIMAL ASSIST. PT VOIDING URINE AND DRINKING FLUIDS. PT HAD AN INCONT EPISODE. PT ON 2L VIA N/C, SOB NOTED ON EXERTION. PT HAS NOT HAD HALLUCINATION EPISODES. PT VERBALIZED ANXIETY AT START OF SHIFT, MEDICATED WITH 0.5MG OF ATIVAN, WITH RELIEF AND SUPPORT. DRESSING ON LEFT HAND CHANGED THIS SHIFT PER ORDERS. PT MAKES NEEDS KNOWN, CALL LIGHT IN REACH.
[2024-06-08 07:31] VITALS: BP 115/87
[2024-06-08] MEDS ORDERED: Hydrocortisone 20 MG Tab PO SCH (09:00)
[2024-06-08] MEDS ORDERED: ALPRAZolam 0.5 MG Tab PO PRN (11:55)
[2024-06-08] MEDS ORDERED: Sertraline HCl 50 MG Tab PO SCH (12:00)
[2024-06-08 15:20] VITALS: BP 137/78
[2024-06-08] MEDS ORDERED: HydrOXYzine Pamoate 25 MG Cap PO PRN (16:55)
--- NOTE | 2024-06-08 17:21 | NUR ---
summary no acute changes t/o shift. pt sat up in chair for couple hours. had difficulty standing after sitting for extended period of time. three person assist using gait belt and fww to assist back to bed. after resting in bed, pt was able [place] stand [place] [facility] [place], gait belt and fww. pt worked with therapy in the morning and used exercise bands independently this afternoon. pleasant and cooperative. call light in reach.
[2024-06-08 19:27] VITALS: BP 135/93
[2024-06-09 04:32] VITALS: BP 122/86
[2024-06-09 05:01] LABS: BASOPHILS ABSOLUTE AUTO 0.02 K/mm3 (0.00-0.23); BASOPHILS PERCENT AUTO 0 % (0-2); EOSINOPHILS ABSOLUTE AUTO 0.16 K/mm3 (0.00-0.68); EOSINOPHILS PERCENT AUTO 3 % (0-6); Hematocrit 35.9 % (33.0-51.0); Hemoglobin 11.8 g/dL (11.5-16.0); IMMATURE GRAN ABSOLUTE AUTO 0.01 K/mm3 (0.00-0.10); IMMATURE GRAN PERCENT AUTO 0 % (0-1); LYMPHOCYTES ABSOLUTE AUTO 1.45 K/mm3 (0.84-5.20); LYMPHOCYTES PERCENT AUTO 30 % (21-46); MONOCYTES ABSOLUTE AUTO 0.53 K/mm3 (0.16-1.47); MONOCYTES PERCENT AUTO 11 % (4-13); Mean Corpuscular HGB 31.6 pg (26.0-34.0); Mean Corpuscular HGB Conc 32.9 g/dL (31.5-36.5); Mean Corpuscular Volume 96 fL (80-100); Mean Platelet Volume 11.1 fL (9.1-12.4); NEUTROPHILS ABSOLUTE AUTO 2.64 K/mm3 (1.96-9.15); NEUTROPHILS PERCENT AUTO 55 % (41-73); Platelet Count 115 K/mm3 (150-400); RDW Coefficient Variation 16.6 % (11.7-14.2); RDW Standard Deviation 59.2 fL (35.1-46.3); Red Blood Cell Count 3.73 M/mm3 (3.80-5.20); White Blood Cell Count 4.81 K/mm3 (4.00-11.30)
[2024-06-09 05:20] LABS: Bun/Creatinine Ratio 14.7 (12.0-20.0); Creatinine, Blood 0.95 mg/dL (0.40-1.00)
--- NOTE | 2024-06-09 06:10 | NUR ---
SHIFT SUMMARY VSS, PT TOLLERATED UTILIZING A CPAP FOR A FEW HOURS T/O THE NIGHT. PT SLEPT WELL T/O THE NIGHT. TOLLERATED PO INTAKE W/O N/V. PT ABLE TO AMBULATE TO [facility] [place] W/1 ASSIST, FWW, AND GT BELT. NO ACUTE CHANGES NOTED T/O THE NIGHT. PLAN TO D/C TP SNF WHEN THERE ARE OPENINGS. THE PATIENT IS CURRENTLY RESTING, IN NO DISTRESS, CALL JODYI N REACH
--- NOTE | 2024-06-09 06:36 | NUR ---
WOUND CARE L ELBOW AND L HAND CLEANSED W/ SALINE AND 4X4, PATTED DRY, XEROFORM APPLIED AND BANDAGE PLACED.
[2024-06-09 07:19] VITALS: BP 142/96
[2024-06-09 14:50] VITALS: BP 108/80
--- NOTE | 2024-06-09 18:04 | NUR ---
SHIFT SUMMARY PATIENT ALERT AND INTERACTIVE. PATIENT OOB MULTIPLE TIMES TODAY AND UP TO COMMODE. PATIENT NEEDING MINIMAL ASSISTANCE AND COACHING FOR SAFE TRANSFERS. PATIENT ABLE TO AMBULATE WITH MINIMAL ASSISTANCE FOR SHORT DISTANCES. PATIENT CONTINUES ON RA AT THIS TIME. L HAND DRESSING REPLACED WITH DRY DRESSING. PATIENT ENCOURAGED TO MOBILIZE MUCH POSSIBLE.
[2024-06-09 19:11] VITALS: BP 135/94
[2024-06-09 19:12] VITALS: BP 122/88
[2024-06-10 05:02] VITALS: BP 129/88
--- NOTE | 2024-06-10 06:15 | NUR ---
SHIFT SUMMARY NOC PT A/O X 4. TIMBI-SHA SHOSHONE R EAR. PLEASANT AND COOPERATIVE WITH CARE. VSS. NO ACUTE CHANGES TO REPORT. PT ON RA SPO2 >94%. LH OPEN BLISTER HAS DRESSING IN PLACE C/D/I. PT HAS NOT REQUIRED ANXIETY RX DURING SHIFT. PT HAS BEEN ACCEPTED AT [facility] AND IS WAITING ON THE [facility] INSURANCE AUTHORIZATION FOR DISCHARGE. PT CURRENTLY RESTING WITH BED IN LOWEST POSITION, AND CALL LIGHT WITHIN REACH.
[2024-06-10 08:30] VITALS: BP 133/96
[2024-06-10] MEDS ORDERED: Lactulose 20 GM/30 ML UDC PO SCH (09:00)
[2024-06-10] MEDS ORDERED: Hydrocortisone 10 MG Tab PO SCH (09:00)
[2024-06-10 12:46] LABS: SARS-Cov-2 (COVID-19) PCR, MMC NEGATIVE (NEGATIVE)
--- NOTE | 2024-06-10 15:25 | NUR ---
DISCHARGE PT DISCHARGED TO [facility] VIA WHEELCHAIR TRANSPORT. DC PAPERS GIVEN AND REVIEWED WITH PT. REPORT GIVEN TO KILEY AT [facility]. ALL BELONGINGS SENT WITH PT AND TRANSPORT.
== END 2024-06-10 15:30 | DRG 441 ==
LOC: ER 09:54 → ERHOLD 09:55 → SURS 09:55 → ICUE 09:55 → SURS 06-05 05:25
PROVIDERS: Internal Medicine; Student in an Organized Health Care Education/Training Program; ADMIT Internal Medicine
DX: K76.82 Hepatic encephalopathy (principal); G92.8 Other toxic encephalopathy; E27.40 Unspecified adrenocortical insufficiency; E51.2 Wernicke's encephalopathy; Z68.44 Body mass index [BMI] 60.0-69.9, adult; E66.2 Morbid (severe) obesity with alveolar hypoventilation; J98.11 Atelectasis; N17.9 Acute kidney failure, unspecified; N39.0 Urinary tract infection, site not specified; F10.20 Alcohol dependence, uncomplicated; D69.6 Thrombocytopenia, unspecified; E03.9 Hypothyroidism, unspecified; Z74.01 Bed confinement status; K70.9 Alcoholic liver disease, unspecified; F32.A Depression, unspecified; N18.31 Chronic kidney disease, stage 3a; I12.9 Hypertensive chronic kidney disease with stage 1 through stage 4 chronic kidney disease, or unspecified chronic kidney disease; I48.0 Paroxysmal atrial fibrillation
CPT/HCPCS: 0241U; 36415; 36620; 51702; 70450; 71045; 80048; 80053; 80400; 81001; 82140; 82533; 82550; 82803; 82947; 83605; 83690; 83735; 83880; 84100; 84439; 84443; 84484; 85025; 85610; 87040; 93005; 93010; 94660; 94762; 96365-59; 97110; 97116; 97161; 97165; 97530; 97535; 99285-25; A9270; C1751; J0696; J0780; J0834; J1650; J1720; J1940; J2060; J2543; J3370; J3411; J3475; J7030; J7040; J7060; Q0177; U0002

== ENCOUNTER 2024-07-04 21:57 | Inpatient (IN) | payer OTHER ==
[~2024-07-04] VITALS: Ht 175.3 cm; Wt 197.5 kg
[2024-07-04] MEDS ORDERED: Albuterol 2.5 MG/3 ML VIAL INH SCH (22:10)
[2024-07-04 23:26] LABS: BASOPHILS ABSOLUTE AUTO 0.04 K/mm3 (0.00-0.23); BASOPHILS PERCENT AUTO 1 % (0-2); EOSINOPHILS ABSOLUTE AUTO 0.13 K/mm3 (0.00-0.68); EOSINOPHILS PERCENT AUTO 2 % (0-6); Hemoglobin 12.1 g/dL (11.5-16.0); IMMATURE GRAN ABSOLUTE AUTO 0.03 K/mm3 (0.00-0.10); IMMATURE GRAN PERCENT AUTO 1 % (0-1); LYMPHOCYTES ABSOLUTE AUTO 1.73 K/mm3 (0.84-5.20); LYMPHOCYTES PERCENT AUTO 31 % (21-46); MONOCYTES ABSOLUTE AUTO 0.56 K/mm3 (0.16-1.47); MONOCYTES PERCENT AUTO 10 % (4-13); Mean Corpuscular HGB 31.6 pg (26.0-34.0); Mean Corpuscular Volume 102 fL (80-100); Mean Platelet Volume 10.3 fL (9.1-12.4); NEUTROPHILS ABSOLUTE AUTO 3.19 K/mm3 (1.96-9.15); NEUTROPHILS PERCENT AUTO 56 % (41-73); Platelet Count 166 K/mm3 (150-400); RDW Coefficient Variation 18.4 % (11.7-14.2); Red Blood Cell Count 3.83 M/mm3 (3.80-5.20); White Blood Cell Count 5.68 K/mm3 (4.00-11.30)
[2024-07-04 23:55] LABS: Alanine Aminotransfer (ALT/SGP 9 U/L (12-78); Albumin, Blood 3.2 g/dL (3.4-5.0); Albumin/Globulin Ratio 0.9 (0.8-1.8); Alk Phos 103 U/L (50-136); Anion Gap 11 mmol/L (3-11); Aspartate Aminotrans (AST/SGOT 16 U/L (12-37); Bilirubin, Total 0.8 mg/dL (0.1-1.0); Blood Urea Nitrogen 25 mg/dL (8-24); Bun/Creatinine Ratio 13.8 (12.0-20.0); CO2, Blood 26 mmol/L (21-32); Calcium, Blood 9.4 mg/dL (8.5-10.1); Chloride, Blood 107 mmol/L (98-108); Creatinine, Blood 1.81 mg/dL (0.40-1.00); Ethanol (Alcohol), Blood, Med <3 mg/dL; Globulin, Blood 3.7 g/dL (2.2-4.0); Glomerular Filtration Rate 33 (60-); Glucose, Blood 82 mg/dL (70-99); Potassium, Blood 5.3 mmol/L (3.5-5.5); Sodium, Blood 139 mmol/L (136-145); Total Protein, Blood 6.9 g/dL (6.4-8.2)
[2024-07-05 00:11] LABS: CORONAVIRUS COVID-19 AG Negative (NEGATIVE); INFLUENZA A AG Negative (NEGATIVE); INFLUENZA B AG Negative (NEGATIVE)
[2024-07-05] MEDS ORDERED: Furosemide 10 MG/ML 4ML Vial IV ONE (00:25)
[2024-07-05] MEDS ORDERED: FLU VACC TS2024-25(6MOS UP)/PF 45 MCG/0.5 ML SYRINGE IM ONE (00:40)
[2024-07-05] MEDS ORDERED: Ondansetron HCl 2 MG / ML 2ML Vial IV PRN (00:40)
[2024-07-05] MEDS ORDERED: Ipratropium/Albuterol SulF 2.5-0.5MG/3 ML Amp INH PRN (00:45)
[2024-07-05 02:11] LABS: Bicarbonate Venous 23.4 mmol/L (24.0-30.0); PCO2 Venous 70.5 mmHg (38-42); pH Blood Venous 7.22 (7.34-7.37)
[2024-07-05 02:12] LABS: Base Excess Venous 1.1 mmol/L
[2024-07-05 02:24] LABS: Source, Urine Clean Catch
[2024-07-05 02:27] LABS: Bilirubin, Urine Neg (Neg); Blood, Urine Neg (Neg); Glucose Qualitative, Urine Neg (Neg); Ketones, Urine Neg (Neg); Leukocyte Esterase, Urine Neg (Neg); Nitrite, Urine Neg (Neg); Protein, Urine 3+ (Neg); Urobilinogen, Urine 2+ (Normal)
[2024-07-05 03:03] LABS: Appearance, Urine Hazy (Clear); Color, Urine Yellow (P-Yellow)
[2024-07-05 03:04] LABS: Bacteria Few /hpf; Red Blood Cells, Urine 0-2 /hpf (0-2); Squamous Epithelial Cells Many /hpf (Few); White Blood Cells, Urine 0-2 /hpf (0-5)
[2024-07-05 05:24] LABS: BASOPHILS ABSOLUTE AUTO 0.03 K/mm3 (0.00-0.23); BASOPHILS PERCENT AUTO 1 % (0-2); EOSINOPHILS ABSOLUTE AUTO 0.15 K/mm3 (0.00-0.68); EOSINOPHILS PERCENT AUTO 2 % (0-6); Hematocrit 34.5 % (33.0-51.0); Hemoglobin 10.8 g/dL (11.5-16.0); IMMATURE GRAN ABSOLUTE AUTO 0.03 K/mm3 (0.00-0.10); IMMATURE GRAN PERCENT AUTO 1 % (0-1); LYMPHOCYTES ABSOLUTE AUTO 2.06 K/mm3 (0.84-5.20); LYMPHOCYTES PERCENT AUTO 33 % (21-46); MONOCYTES ABSOLUTE AUTO 0.92 K/mm3 (0.16-1.47); MONOCYTES PERCENT AUTO 15 % (4-13); Mean Corpuscular HGB 31.8 pg (26.0-34.0); Mean Corpuscular HGB Conc 31.3 g/dL (31.5-36.5); Mean Corpuscular Volume 102 fL (80-100); Mean Platelet Volume 10.3 fL (9.1-12.4); NEUTROPHILS ABSOLUTE AUTO 3.09 K/mm3 (1.96-9.15); NEUTROPHILS PERCENT AUTO 49 % (41-73); Platelet Count 149 K/mm3 (150-400); RDW Coefficient Variation 18.5 % (11.7-14.2); White Blood Cell Count 6.28 K/mm3 (4.00-11.30)
[2024-07-05 06:14] LABS: Albumin, Blood 2.8 g/dL (3.4-5.0); Albumin/Globulin Ratio 0.8 (0.8-1.8); Bilirubin, Total 0.8 mg/dL (0.1-1.0); Bun/Creatinine Ratio 13.6 (12.0-20.0); Calcium, Blood 8.6 mg/dL (8.5-10.1); Creatinine, Blood 1.76 mg/dL (0.40-1.00); Globulin, Blood 3.5 g/dL (2.2-4.0); Potassium, Blood 5.2 mmol/L (3.5-5.5); Total Protein, Blood 6.3 g/dL (6.4-8.2)
[2024-07-05] MEDS ORDERED: Furosemide 10 MG / ML 2ML Vial IV SCH (09:00)
[2024-07-05] MEDS ORDERED: MethylPREDNISolone Sod Succ 125 MG Vial IV SCH (09:00)
[2024-07-05] MEDS ORDERED: Enoxaparin 40 MG/0.4 ML SYR SC SCH (09:00)
[2024-07-05 09:06] LABS: Base Excess Venous 0.8 mmol/L; Bicarbonate Venous 23.9 mmol/L (24.0-30.0); pH Blood Venous 7.28 (7.34-7.37)
[2024-07-05] MEDS ORDERED: ESCI10 PO (14:56)
[2024-07-05] MEDS ORDERED: Atarax10 MG PO (14:56)
[2024-07-05 15:27] VITALS: BP 151/102
--- NOTE | 2024-07-05 15:35 | NUR ---
ADMISSION TO PCU; PT ARRIVES TO PCU FROM ER AT 1437. UPON ARRIVAL PT IS ABLE TO STAND AND TRANSFER FROM RNEY TO BED WITH ASSISTANCE X 2 RNS. PT ANXIOUS WITH TRANSFER. PT IS AXO X 2-3 CONFUSION NOTED. PT STATES SHE WAS IN [place] BUT STATES SHE IS IN [facility]. ABLE TO STATE NAME AND WELL YEAR. PT EASY TO REDIRECT BACK TO CURRENT SITUATION. PT ARRIVES IN 3L N/C HAS BEEN ON BIPAP FOR LOW PH ON VBG. PT SATTING 100% ON 3L DENIES ANY SOB AT THIS TIME. PT DENIES C/P. HR IS 76 AND SINUS. HTN NOTED - HX OF NOT ON B/P MEDS. PT IS EDEMATOUS T/O SWELLING TO HANDS AND LEGS, SKIN TIGHT. PT HAS REDNESS TO SKIN AND LOWER EXTREMITIES. SHE DENIES N/V/D. LASIX PROVIDED AND PUREWICK PLACED D/T URGENCY AND INABILITY TO GET UP TIMELY TO GO BATHROOM. SHE IS DECONDITIONED. WALKS SHORT DISTANCES OCCASIONALLY. SHE IS PLESANT ANS COOPERATIVE, EDUCATED GOVERNMENT CONTRACTS MANAGER LIGHT AND PROVIDED PT WITH CALL LIGHT. PT NPO AND WOULD LIKE TO DRINK. THIS RN TO CALL MD TO DISCUSS NPO ORDER. DENIES FURTHER NEEDS. RESTING COMFORTABLY IN BED.
--- NOTE | 2024-07-05 17:41 | NUR ---
PCU DAY SHIFT SUMMARY: PT CONDITION REMAINS UNCHNAGED FROM PREVIOUS ASSMPTION OF CARE NOTE. PT CONTINUES TO BE AXO X3 BUT DIRECTABLE. SHE HAS BEEN RESTING IN BED, NPO ORDER CHANGED PER MD. PT CONTINUES TO USE PUREWICK FOR URINATION. BARIATRIC BED PROVIDED. PT MEAL TRAY SET UP AND PT INDEPENDENT WITH MEAL. REMAINS ON 3L N/C SATS >92% IL MD SWITCH BACK TO BIPAP WHEN SLEEPING. PT HAD NO SIGNIFCANT CHANGES FORM ASSUMPTION OF CARE. WILL CONTINUE TO COMPLETE CARE ORDERED UNTIL REPORT TO DANIEL SMALLS.
[2024-07-05 18:12] VITALS: BP 123/81
[2024-07-05 20:29] VITALS: BP 105/60
[2024-07-06 00:27] VITALS: BP 120/77
[2024-07-06 05:00] VITALS: BP 130/79
[2024-07-06 05:01] LABS: Bun/Creatinine Ratio 19.2 (12.0-20.0); Creatinine, Blood 1.25 mg/dL (0.40-1.00); Potassium, Blood 5.6 mmol/L (3.5-5.5)
--- NOTE | 2024-07-06 07:16 | NUR ---
NOC SHIFT SUMMARY NO ACUTE EVENTS OVERNIGHT. TOLERATED BIPAP OR 2L VIA NC. PUREWIC IN PLACE. ADEQUATE UOP. 3+ EDEMA TO BLE. ORIENTED X3-4, UNSURE OF DATE. VSS.
[2024-07-06 08:17] VITALS: BP 129/94
--- NOTE | 2024-07-06 08:30 | NUR ---
INITIAL ASSESSMENT: Patient is awake sitting up in bed, she is alert and oriented x3, she is unsure of the date. Per noc RN patient was intermittently hallucinating last night, she denies this today. She denies pain at this time. HRR. LS DIM in the bases, she was on Bi-Pap settings 16/10 FIO2 at 35%, she is asking about coming off the Bi-Pap, she is stable on 3L via O2. BT+, she states she has not has a BM in a while, she will be started on Lactulose this AM. She has a purewick in place. She has 3+ generalized edema. VSS. Dr. Cline at the bedside. Patient denies other needs at this time. Call light in reach.
[2024-07-06] MEDS ORDERED: Furosemide 10 MG/ML 4ML Vial IV SCH (09:00)
[2024-07-06] MEDS ORDERED: Citalopram Hydrobromide 20 MG Tab PO SCH (09:00)
[2024-07-06] MEDS ORDERED: Lactulose 20 GM/30 ML UDC PO SCH (09:00)
[2024-07-06 11:59] VITALS: BP 132/84
[2024-07-06 15:37] VITALS: BP 129/88
[2024-07-06] MEDS ORDERED: Empagliflozin 10 MG TAB PO SCH (16:00)
--- NOTE | 2024-07-06 17:58 | NUR ---
Summary: Patient has been alert and oriented x3 T/O the day, she has intermittent periods of confusion. HRR, SR in the 80s, VSS. Biox has been low 90s on 2l via NC, she has a Bi-Pap at the bedside as needed, settings 16/10 FIO@ 30%. BT+, she had one BM this afternoon after recieving a dose of Lactulose. She has 3+ generalized pitting edema. She has a purewick in place and has been diuresing well, around 2500cc UP this shift. She was able to use the bedpan this afternoon. She has a lift sheet underneath her for repositioning, plan for PT/OT tomorrow to continue getting stronger. No acute changes this shift, will report to oncoming RN.
[2024-07-06 20:02] VITALS: BP 128/68
[2024-07-06] MEDS ORDERED: Enoxaparin 40 MG/0.4 ML SYR SC SCH (21:00)
[2024-07-07 02:31] VITALS: BP 147/89
--- NOTE | 2024-07-07 04:21 | NUR ---
SHIFT SUMMARY: Pt is admitted for volume overload and is a full code. Is alert and able to make needs known. ADLs have been a mix of 1-2. Mainly 2p. Denies pain or discomfort when asked. BIpap was worn for most of the night.
[2024-07-07 05:35] LABS: Bun/Creatinine Ratio 23.3 (12.0-20.0); Calcium, Blood 8.7 mg/dL (8.5-10.1); Creatinine, Blood 1.2 mg/dL (0.40-1.00); Potassium, Blood 4.5 mmol/L (3.5-5.5)
[2024-07-07 07:41] VITALS: BP 135/94
[2024-07-07] MEDS ORDERED: IBUP200 PO (13:50)
[2024-07-07 17:11] VITALS: BP 120/78
--- NOTE | 2024-07-07 18:18 | NUR ---
PT PLEASANT TODAY. ENCOURAGED TO GET UP AND STAND WITH PHYSICAL THERAPY. EDUCATED IS ALWAYS HARDER TO GET STARTED THAN KEEP LEVEL. LUNGS CLEAR FOR ME. MEDICATIONS GIVEN PER EMAR. NO NEW CONCERNS NOTED. BED IN LOW POSITION, CALL LITE IN REACH, CALLS APPROP
[2024-07-07 19:24] VITALS: BP 128/80
[2024-07-07] MEDS ORDERED: HyDROXyzine HCl 10 MG Tab PO ONE (21:45)
[2024-07-08 04:58] LABS: Bicarbonate Venous 33.7 mmol/L (24.0-30.0); PCO2 Venous 44.7 mmHg (38-42); pH Blood Venous 7.49 (7.34-7.37)
[2024-07-08 05:05] VITALS: BP 133/96
--- NOTE | 2024-07-08 05:26 | NUR ---
SHIFT SUMMARY PT ALERT ORIENTED X 4 ABLE TO VERBALIZE NEEDS SHE HAS A PUREWICK ON BUT IT DOESNT SEEM TO BE WORKING AND SHES BEEN INC AND REQUIRES TO BE CHANGED SHE C/O ANXIETY. ORDER WAS RECEIVED FOR A ONE TIME DOSE OF ATARAX WHICH HELPED WITH HER ANXIETY AND HELPED HER TO SLEEP. SHE WORE THE BIPAP WHILE SHE WAS SLEEPING LAST NIGHT. REMAINS ON TELEMETRY AT SINUS TACH AT A RATE OF 101. CONTINUES ON A CONTINUOUS PULSE OX.REMAINS WITH EDEMA TO LOWER EXTREMITIES. RESTING IN BED AT THIS TIME WITH CALL LIGHT IN REACH
[2024-07-08 05:54] LABS: Anion Gap 11 mmol/L (3-11); Blood Urea Nitrogen 26 mg/dL (8-24); Bun/Creatinine Ratio 25.2 (12.0-20.0); CO2, Blood 32 mmol/L (21-32); Chloride, Blood 102 mmol/L (98-108); Creatinine, Blood 1.03 mg/dL (0.40-1.00); Glomerular Filtration Rate 64 (60-); Glucose, Blood 98 mg/dL (70-99); Phosphorus, Blood 2.9 mg/dL (2.5-4.9); Potassium, Blood 3.8 mmol/L (3.5-5.5); Sodium, Blood 141 mmol/L (136-145)
[2024-07-08 07:28] VITALS: BP 117/73
[2024-07-08] MEDS ORDERED: Furosemide 10 MG/ML 4ML Vial IV SCH (09:00)
[2024-07-08] MEDS ORDERED: HyDROXyzine HCl 10 MG Tab PO PRN (15:15)
[2024-07-08 16:05] VITALS: BP 108/64
--- NOTE | 2024-07-08 18:30 | NUR ---
SHIFT SUMMARY PATIENT A/OX4, ABLE TO MAKE NEEDS KNOWN. PLEASANT AND COOPERATIVE WITH CARE. CONTINUES WITH 2 LPM SUPPLEMENTAL OXYGEN VIA NASAL CANNULA WHEN AWAKE, TOELRATING WELL. CONTINUOUS PUSLE OX IN PLACE WITH MAINTAINED SPO2 ABOVE 88%. TELEMETRY IN PLACE, THIS EVENING CONTINUOUS PUSLE OX ALARMED FOR HEART RATE IN 160s AT THE HIGHEST. CALLED TELE AND FOUND PATIENT TO BE IN SVT, MD AWARE AND EKG PERFORMED. PATIENT REQUESTED HYDROXYZINE FOR ANXIETY WHICH SHE USES AT HOME, NEW ORDER IN PLACE. IV DRESSING CHANGED. PATIENT WITH PUREWICK IN PLACE AND WAS ABLE TO GET OUT OF BED WITH 2 PERSON MODERATE ASSISTANCE TO RECLINER FOR DINNER. PATIENT ALSO PARTICIPATED IN OCCUPATIONAL THERAPY THIS MORNING. NO OTHER CONCERNS AT THIS TIME.
[2024-07-08 20:26] VITALS: BP 127/93
--- NOTE | 2024-07-08 22:15 | NUR ---
NOTIFIED BY WIRE WALKER PT HAD 8 BEAT RUN OF SVT, WHEN ASSESSED PT ASYMPTOMATIC. GA CONVERTED BACK TO SINUS TACH IN 100'S. HOSPITALIST NOTIFIED AND ORDER FOR MAGNESIUM LAB ALONG WITH SCHEDULED RENAL FUNCTION PANEL FOR AM LABS. WILL CONTINUE TO MONITOR VIA CONTINOUS CARDIAC MONITORING.
--- NOTE | 2024-07-09 04:16 | NUR ---
Pt A&O x4, VS WNL, O2 @ 2L until HS then on BIPAP. tele is ST, x2 episodes of SVT in 150's. Pt with edita, BR except during day then is up to chair with x2-3 assist. bilateral edema, with check wt this am, awaiting labs, will return to [facility] when discharged.
[2024-07-09 05:39] LABS: Albumin, Blood 2.6 g/dL (3.4-5.0); Anion Gap 10 mmol/L (3-11); Blood Urea Nitrogen 22 mg/dL (8-24); Bun/Creatinine Ratio 23.4 (12.0-20.0); CO2, Blood 35 mmol/L (21-32); Calcium, Blood 8.6 mg/dL (8.5-10.1); Chloride, Blood 101 mmol/L (98-108); Creatinine, Blood 0.94 mg/dL (0.40-1.00); Glomerular Filtration Rate 72 (60-); Glucose, Blood 93 mg/dL (70-99); Magnesium, Blood 1.6 mg/dL (1.6-2.4); Phosphorus, Blood 3.1 mg/dL (2.5-4.9); Potassium, Blood 3.7 mmol/L (3.5-5.5); Sodium, Blood 142 mmol/L (136-145)
[2024-07-09 07:49] VITALS: BP 128/81
[2024-07-09] MEDS ORDERED: Metoprolol Succinate 25 MG TABCR PO SCH (09:00)
[2024-07-09] MEDS ORDERED: Furosemide 40 MG Tab PO SCH (10:00)
[2024-07-09] MEDS ORDERED: JARDIANCE10 MG PO (10:37)
[2024-07-09] MEDS ORDERED: METO25ER PO (10:38)
[2024-07-09] MEDS ORDERED: FURO40 PO (10:38)
[2024-07-09 14:57] VITALS: BP 122/85
--- NOTE | 2024-07-09 15:43 | NUR ---
DISCHARGE NOTE PATIENT A/OX4, ABLE TO MAKE NEEDS KNOWN. PLEASANT AND COOPERATIVE WITH CARE. PATIENT COMPLAINING OF ANXIETY THIS MORNING, PRN HYDROXYZINE ADMINISTERED PER AUG. PATIENT ABLE TO HAVE A SHOWER THIS EVENING PRIOR TO DISCHARGE. STARTED ON PO METOPROLOL AND LASIX AND EDUCATED REGARDING SIDE EFFECTS OF MEDICATIONS. REPORT PROVIDED TO MAXIME AT [facility]. MAXIME WITH CONCERNS OF NOT HAVING A BIPAP MACHINE AT THE FACILITY, BUT WHEN DISCUSSED WITH PATIENT SHE STATES THERE IS A BIPAP MACHINE SHE HAS IN HER ROOM, SHE JUST HAD NOT USED IT WHILE STAYING IN THE FACILITY. PATIENT A 1 PERSON MINIMAL ASSIST WITH TRANSFERS AND 2 PERSON MOD ASSIST WITH BED MOBILITY. NO OTHER CONCERNS AT THIS TIME. SCHEDULED TRANSPORTATION ARRIVED WITH BARIATRIC WHEELCHAIR TO TRANSFER PATIENT TO [facility].
== END 2024-07-09 15:25 | DRG 291 ==
LOC: ER 21:57 → PCU 07-05 00:38 → ERHOLD 07-05 00:38 → PCU 07-05 14:54 → MEDS 07-06 19:44 → ENPENDDIS 07-09 12:16 → MEDS 07-09 15:25
PROVIDERS: Emergency Medicine; Internal Medicine; ADMIT Internal Medicine
PROC: 5A09357 Assistance with Respiratory Ventilation, Less than 24 Consecutive Hours, Continuous Positive Airway Pressure (ICD-10-PCS; principal; 2024-07-05)
DX: I11.0 Hypertensive heart disease with heart failure (principal); G92.8 Other toxic encephalopathy; I50.33 Acute on chronic diastolic (congestive) heart failure; J96.21 Acute and chronic respiratory failure with hypoxia; J96.22 Acute and chronic respiratory failure with hypercapnia; J44.1 Chronic obstructive pulmonary disease with (acute) exacerbation; N17.9 Acute kidney failure, unspecified; E66.2 Morbid (severe) obesity with alveolar hypoventilation; Z68.41 Body mass index [BMI] 40.0-44.9, adult; F32.A Depression, unspecified; F17.210 Nicotine dependence, cigarettes, uncomplicated; Z99.81 Dependence on supplemental oxygen; E87.5 Hyperkalemia; I27.20 Pulmonary hypertension, unspecified; Z79.899 Other long term (current) drug therapy
CPT/HCPCS: 36415; 71045; 76770; 80048; 80053; 80069; 80320; 81001; 82140; 82803; 83735; 83880; 84484; 85025; 87428-QW; 93005; 93010; 93306; 94640; 94660; 94664; 94762; 97110; 97116; 97161; 97165; 97530; 97535; 99285-25; A9270; J1650; J1940; J2919

== ENCOUNTER → 2024-09-07 | Outpatient (CLI) | payer OTHER ==
[~2024-09-07] MED LIST changes: +Atarax10 MG PO; +ESCI10 PO; +FURO40 PO; +IBUP200 PO; +JARDIANCE10 MG PO; +METO25ER PO
[2024-09-07 18:37] LABS: Albumin, Blood 3.7 g/dL (3.4-5.0); Albumin/Globulin Ratio 1.1 (0.8-1.8); Bilirubin, Total 1.1 mg/dL (0.1-1.0); Bun/Creatinine Ratio 18.3 (12.0-20.0); Calcium, Blood 9.1 mg/dL (8.5-10.1); Creatinine, Blood 1.15 mg/dL (0.40-1.00); Globulin, Blood 3.4 g/dL (2.2-4.0); Potassium, Blood 4.2 mmol/L (3.5-5.5); Total Protein, Blood 7.1 g/dL (6.4-8.2)
== END | disposition home or self-care (01) ==
LOC: LAB SHORT 18:02 → LAB 18:02
PROVIDERS: Family Medicine
DX: I50.33 Acute on chronic diastolic (congestive) heart failure (principal)
CPT/HCPCS: 80053

== ENCOUNTER → 2024-10-22 | Outpatient (CLI) | payer OTHER ==
[2024-10-23 11:08] LABS: Albumin, Blood 4.1 g/dL (3.4-5.0); Anion Gap 9 mmol/L (3-11); Blood Urea Nitrogen 42 mg/dL (8-24); Bun/Creatinine Ratio 34.1 (12.0-20.0); CO2, Blood 31 mmol/L (21-32); Calcium, Blood 9.9 mg/dL (8.5-10.1); Chloride, Blood 98 mmol/L (98-108); Creatinine, Blood 1.23 mg/dL (0.40-1.00); Glomerular Filtration Rate 52 (60-); Glucose, Blood 75 mg/dL (70-99); Phosphorus, Blood 4.2 mg/dL (2.5-4.9); Potassium, Blood 5.4 mmol/L (3.5-5.5); Sodium, Blood 133 mmol/L (136-145)
== END ==
LOC: LAB 13:50 → LAB SHORT 13:50
PROVIDERS: Family Medicine
DX: N17.9 Acute kidney failure, unspecified (principal); Z79.899 Other long term (current) drug therapy
CPT/HCPCS: 80069

== ENCOUNTER 2025-06-04 22:08 | Inpatient (IN) | payer OTHER ==
[~2025-06-04] VITALS: Ht 175.3 cm; Wt 137.9 kg
[2025-06-04 22:30] LABS: RDW Standard Deviation 59.3 fL (35.1-46.3)
[2025-06-04 22:44] LABS: Alanine Aminotransfer (ALT/SGP 68.0 U/L (12-78); Albumin, Blood 3.9 g/dL (3.4-5.0); Albumin/Globulin Ratio 1.1 (0.8-1.8); Anion Gap 11.0 mmol/L (3-11); Aspartate Aminotrans (AST/SGOT 78.0 U/L (12-37); Bilirubin, Total 0.6 mg/dL (0.1-1.0); Blood Urea Nitrogen 51.0 mg/dL (8-24); CO2, Blood 28.0 mmol/L (21-32); Calcium, Blood 9.2 mg/dL (8.5-10.1); Chloride, Blood 101.0 mmol/L (98-108); Creatinine, Blood 1.63 mg/dL (0.40-1.00); Globulin, Blood 3.4 g/dL (2.2-4.0); Glucose, Blood 112.0 mg/dL (70-99); Potassium, Blood 5.8 mmol/L (3.5-5.5); Sodium, Blood 134.0 mmol/L (136-145); Total Protein, Blood 7.3 g/dL (6.4-8.2)
[2025-06-04] MEDS ORDERED: Morphine Sulfate 4 MG/1 ML Injection IV ONE (22:45)
[2025-06-04 22:48] LABS: BASOPHILS ABSOLUTE AUTO 0.05 K/mm3 (0.00-0.23); BASOPHILS PERCENT AUTO 1 % (0-2); EOSINOPHILS ABSOLUTE AUTO 0.09 K/mm3 (0.00-0.68); EOSINOPHILS PERCENT AUTO 1 % (0-6); Hematocrit 44.1 % (33.0-51.0); Hemoglobin 13.7 g/dL (11.5-16.0); IMMATURE GRAN ABSOLUTE AUTO 0.12 K/mm3 (0.00-0.10); IMMATURE GRAN PERCENT AUTO 1 % (0-1); LYMPHOCYTES ABSOLUTE AUTO 1.56 K/mm3 (0.84-5.20); LYMPHOCYTES PERCENT AUTO 15 % (21-46); MONOCYTES ABSOLUTE AUTO 1.09 K/mm3 (0.16-1.47); MONOCYTES PERCENT AUTO 10 % (4-13); Mean Corpuscular HGB Conc 31.1 g/dL (31.5-36.5); Mean Corpuscular Volume 101 fL (80-100); NEUTROPHILS ABSOLUTE AUTO 7.65 K/mm3 (1.96-9.15); NEUTROPHILS PERCENT AUTO 72 % (41-73); NRBC ABSOLUTE 0.02 K/mm3 (0.00-0.02); NRBC Auto 0.2 /100 WBC (0.0-0.2); RDW Coefficient Variation 15.6 % (11.7-14.2)
[2025-06-04 23:05] LABS: Platelet Count 180 K/mm3 (150-400)
[2025-06-05] MEDS ORDERED: FLU VACC TS2025-26(6MOS UP)/PF 45 MCG/0.5 ML SYRINGE IM SCH (03:45)
[2025-06-05] MEDS ORDERED: Ondansetron HCl 2 MG / ML 2ML Vial IV PRN (03:50)
[2025-06-05] MEDS ORDERED: Naloxone HCl 0.4MG / ML 1ML Vial IV PRN (03:50)
[2025-06-05 04:08] LABS: pH Blood Venous 7.27 (7.34-7.37)
[2025-06-05 05:13] LABS: Magnesium, Blood 2.4 mg/dL (1.6-2.4)
[2025-06-05 05:22] VITALS: BP 131/90
--- NOTE | 2025-06-05 05:30 | NUR ---
ARRIVAL NOTE PATIENT ARRIVES FROM ED VIA GURNEY WITH CPAP IN PLACE, ACCOMPANIED BY ED RN AND RT. PATIENT IS ALERT AND LAYING SUPINE. SEVERAL STAFF IN ROOM FOR TRANSFER, AND PATIENT MOVED FROM ED GURNEY TO PCU ROOM 5 BED WITHOUT INCIDENT. PATIENT C/O PAIN IN BACK AND HIPS. CPAP REMOVED TEMPORARILY, O2 PLACED @ 4L/MIN NC WHILE PATIENT LOG ROLLED AND LINENS REMOVED FROM UNDER HER. PATIENT SOILED OF STOOL AND CLEANED UP. BOOSTED UP IN BED AND ABLE TO TOLERATE SEMI-NICHOLAS'S. PATIENT GIVEN SMALL SIPS OF WATER, GIVEN CRACKERS AND PO OXYCODONE FOR PAIN. VSS. PATIENT PLACED BACK IN CPAP AFTER TAKING MEDICATIONS. RESTING CURRENTLY IN BED WITH CALL LIGHT IN PLACE. LR INFUSING PER EMAR.
[2025-06-05 07:54] LABS: pH Blood Venous 7.33 (7.34-7.37)
[2025-06-05 08:54] VITALS: BP 123/103
[2025-06-05] MEDS ORDERED: Enoxaparin 40 MG/0.4 ML SYR SC SCH (09:00)
--- NOTE | 2025-06-05 10:28 | NUR ---
SI PT DENIES HAVING ANY SI AT THIS TIME. WILL REPEAT EVALUATION Q4 AND MONITOR FOR ANY CHANGES IN BEHAVIOR BETWEEN ASSESSMENTS.
[2025-06-05 11:26] VITALS: BP 125/82
[2025-06-05 11:29] LABS: Anion Gap 10.0 mmol/L (3-11); Blood Urea Nitrogen 47.0 mg/dL (8-24); CO2, Blood 26.0 mmol/L (21-32); Calcium, Blood 8.9 mg/dL (8.5-10.1); Chloride, Blood 102.0 mmol/L (98-108); Creatinine, Blood 1.27 mg/dL (0.40-1.00); Glucose, Blood 97.0 mg/dL (70-99); Potassium, Blood 5.1 mmol/L (3.5-5.5); Sodium, Blood 133.0 mmol/L (136-145)
--- NOTE | 2025-06-05 16:52 | NUR ---
SHIFT SUMMARY ACUTE RESP FAIL THIS VISIT, SHE HAS BEEN ON OXYGEN T/O THE SHIFT VIA NC OR BIPAP. PH IMPROVED ON RECHECK BUT CO2 REMAINS ELEVATED SO SHE WAS PLACED BACK ON HER BIPAP. SHE IS VERY SOMNOLENT ESPECIALLY AFTER 5MG OXYCODONE, WILL SUGGEST HALF DOSE ON NEXT ADMINISTRATION. MRI NOT ABL ETO BE DONE BUT AWARE. NO ACUTE EVENTS THIS SHIFT, CALL LIGHT IN REACH.
[2025-06-05 20:09] VITALS: BP 109/65
[2025-06-05 23:20] VITALS: BP 97/61
[2025-06-06 03:08] VITALS: BP 128/91
[2025-06-06 04:13] LABS: BASOPHILS ABSOLUTE AUTO 0.02 K/mm3 (0.00-0.23); BASOPHILS PERCENT AUTO 0 % (0-2); EOSINOPHILS ABSOLUTE AUTO 0.07 K/mm3 (0.00-0.68); EOSINOPHILS PERCENT AUTO 1 % (0-6); Hematocrit 36.3 % (33.0-51.0); Hemoglobin 11.4 g/dL (11.5-16.0); IMMATURE GRAN ABSOLUTE AUTO 0.02 K/mm3 (0.00-0.10); IMMATURE GRAN PERCENT AUTO 0 % (0-1); LYMPHOCYTES ABSOLUTE AUTO 1.07 K/mm3 (0.84-5.20); LYMPHOCYTES PERCENT AUTO 20 % (21-46); MONOCYTES ABSOLUTE AUTO 0.79 K/mm3 (0.16-1.47); MONOCYTES PERCENT AUTO 15 % (4-13); Mean Corpuscular HGB Conc 31.4 g/dL (31.5-36.5); Mean Corpuscular Volume 101 fL (80-100); NEUTROPHILS ABSOLUTE AUTO 3.48 K/mm3 (1.96-9.15); NEUTROPHILS PERCENT AUTO 64 % (41-73); NRBC ABSOLUTE 0.00 K/mm3 (0.00-0.02); NRBC Auto 0.0 /100 WBC (0.0-0.2); Platelet Count 144 K/mm3 (150-400); RDW Coefficient Variation 15.5 % (11.7-14.2); RDW Standard Deviation 57.9 fL (35.1-46.3)
[2025-06-06 04:36] LABS: Anion Gap 5.0 mmol/L (3-11); Blood Urea Nitrogen 33.0 mg/dL (8-24); CO2, Blood 32.0 mmol/L (21-32); Calcium, Blood 8.4 mg/dL (8.5-10.1); Chloride, Blood 101.0 mmol/L (98-108); Creatinine, Blood 0.97 mg/dL (0.40-1.00); Glucose, Blood 141.0 mg/dL (70-99); Potassium, Blood 4.2 mmol/L (3.5-5.5); Sodium, Blood 134.0 mmol/L (136-145)
--- NOTE | 2025-06-06 06:32 | NUR ---
NO ACUTE EVENTS OVERNIGHT. PT WAS ON CPAP THROUGHOUT NIGHT. PURWICK IN PLACE. PT TURNED Q2 HOURS. BED LOCKED IN LOWEST POSITION. CALL LIGHT WITHIN REACH. PT MEDICATED FOR ANXIETY ORDERED.
[2025-06-06 07:23] VITALS: BP 111/84
[2025-06-06] MEDS ORDERED: Cyanocobalamin/Fa/Pyridoxine 1 Tablet PO SCH (09:00)
[2025-06-06 15:34] VITALS: BP 121/77
--- NOTE | 2025-06-06 17:46 | NUR ---
SHIFT SUMMARY: PT A/O X4, ABLE TO MAKE NEEDS KNOWN. DENIES SUICIDAL IDEATIONS TODAY. MOTHER VISITED THIS AFTERNOON. STRENGTH EQUAL BILATERALLY. PT BEDREST DUE TO L2 BURST FX, PHYSICAL THERAPY ORDERS PLACED TODAY. PUREIWCK IN PLACE TO SUCTION. PT ON 5-7L O2 NC, CPAP WHEN NAPPING/ASLEEP OR WITH INCREASED WORK OF BREATHING. SATS >90%, DESATS TO 70s WHEN ON ROOM AIR. PT SOUNDS COURSE THROUGHOUT WITH A NON-PRODUCTIVE COUGH. NSR-ST 90-100s, DENIES CHEST PAIN/PRESSURE. ALL OTHER VSS. PT LYING IN BED, CALL WITHIN REACH. WILL REPORT TO ONCOMING RN.
[2025-06-06] MEDS ORDERED: Ipratropium/Albuterol SulF 2.5-0.5MG/3 ML Amp INH SCH (18:15)
[2025-06-06 19:16] VITALS: BP 96/60
[2025-06-07 00:16] VITALS: BP 108/74
[2025-06-07 03:15] LABS: Hematocrit 35.4 % (33.0-51.0); Hemoglobin 11.2 g/dL (11.5-16.0); Mean Corpuscular HGB Conc 31.6 g/dL (31.5-36.5); Mean Corpuscular Volume 101 fL (80-100); NRBC ABSOLUTE 0.00 K/mm3 (0.00-0.02); NRBC Auto 0.0 /100 WBC (0.0-0.2); Platelet Count 130 K/mm3 (150-400); RDW Coefficient Variation 15.7 % (11.7-14.2); RDW Standard Deviation 58.2 fL (35.1-46.3)
[2025-06-07 03:33] LABS: Anion Gap 4.0 mmol/L (3-11); Blood Urea Nitrogen 22.0 mg/dL (8-24); CO2, Blood 36.0 mmol/L (21-32); Calcium, Blood 8.2 mg/dL (8.5-10.1); Chloride, Blood 102.0 mmol/L (98-108); Creatinine, Blood 0.81 mg/dL (0.40-1.00); Glucose, Blood 106.0 mg/dL (70-99); Potassium, Blood 4.1 mmol/L (3.5-5.5); Sodium, Blood 138.0 mmol/L (136-145)
[2025-06-07 03:52] VITALS: BP 107/69
--- NOTE | 2025-06-07 06:28 | NUR ---
SHIFT SUMMARY PT A&O X4, ANXIOUS AT TIMES, COOPERATIVE CARE. HR IN THE 90'S, SR. SHE DENIES ANY CP/PRESSURE, NUMB/TINGLING, SBP IN THE 100'S, MAP >65. PT ALTERNATING BETWEEN BIPAP AND HFNC T/O NIGHT. PT ONLY TOLERATING BIPAP FOR SHORT PERIODS OF TIME. WHEN ON HFNC PT REQUIRING 5-8L WHILE AWAKE AND 10L IF ASLEEP AND NOT TOLERATING BIPAP. SHE HAS SOME SOB, WORSE WITH EXERTION. PT HAS PUREWICK IN PLACE. SHE HAS SOME PAIN OF THE LOWER BACK AND RIGHT HIP, MEDICATING PER EMAR. PT RESTING IN BED AT THIS TIME. CALL LIGHT IN REACH. WILL REPORT TO ONCOMING RN.
[2025-06-07 08:04] VITALS: BP 106/73
--- NOTE | 2025-06-07 08:06 | NUR ---
TRANSFER: GAVE REPORT TO MEDICAL RN. PT TRANSFERING VIA BED. ALL BELONGINGS WITH PT. VSS.
[2025-06-07 14:51] LABS: Anion Gap 6.0 mmol/L (3-11); Blood Urea Nitrogen 16.0 mg/dL (8-24); CO2, Blood 33.0 mmol/L (21-32); Calcium, Blood 8.6 mg/dL (8.5-10.1); Chloride, Blood 100.0 mmol/L (98-108); Creatinine, Blood 0.77 mg/dL (0.40-1.00); Glucose, Blood 118.0 mg/dL (70-99); Potassium, Blood 4.9 mmol/L (3.5-5.5); Sodium, Blood 134.0 mmol/L (136-145)
--- NOTE | 2025-06-07 15:52 | NUR ---
Upon receiving and referral for spiritual care, I visited the patient. She tells me about her falls and the damage she has sustained. Her mother is present and supportive. They both are expressive about their CHristain lam and welcome prayer, which I gladly provide. I also provided therapeutic listening and reinforce helpful attitudeds and practices. Both responded wel to allintervetions. I will continue to remain available.
[2025-06-07 16:05] VITALS: BP 128/83
--- NOTE | 2025-06-07 18:16 | NUR ---
PT ALERT AND ORIENTED X4, ON 4L NC SATS GREATER THAN 94%- PT AT BASELINE USES 2L OXYGEN, OXYCODONE AND TYLENOL FOR PAIN MANAGEMENT, PT TRANSFERES TO BSC AND ALSO AMBULATED TO RESTROOM ONCE THIS SHIFT- ENCOURAGING PT TO SIT UP IN CHAIR FOR MEALS. PT HAS STRESS INCONTINENCE- DEPENDS CHANGE PRN. PT HAS BEEN CALM BUT CAN BE ANXIOUS AT TIMES SEE EMAR FOR PRN ANTIANXIETY MED. HOME CPAP BROUGHT IN FROM HOME- RT TO SET UP FOR PT USE TONIGHT. BED ALARM ON AND CALL LIGHT WITHIN REACH.
[2025-06-07 19:31] VITALS: BP 108/75
--- NOTE | 2025-06-07 23:00 | NUR ---
PT C/O INABILITY TO TOLERATE HER HOME MASK D/T CONGESTION AND ASSOCIATED ANXIETY. PT STATED HOME DOSE OF ATARAX WASN'T EFFECTIVE. TATA (ELECTRIC METER TESTER) MADE AWARE AND NEW ORDER RECEIVED FOR ATARAX 25MG PO Q6H PRN. WILL MEDICATE AND ATTEMPT HOME CPAP. PT OBSERVED DESATTING TO 70'S-80'S% ON HF O2 DESPITE TITRATION D/T MOUTH BREATHING AND OCCASIONAL APNEA. PT RECOVERS QUICKLY WHEN O2 REPLACED BUT IS SOB AND LABORED W/EXERTION OR W/PERIODIC REMOVAL OF OXYGEN.
--- NOTE | 2025-06-08 02:05 | NUR ---
REPORT PROVIDED TO MASON LANDON. PT REQUESTED TO BE OFF HOME MASK BUT STILL ISN'T TOLERATING NC W/O O2 DESATS WHILE SLEEPING. OXYMASK COMMENCED AND TITRATED TO 8L O2 TO MAINTAIN SPO2 >91%, CONT BIOX INTACT. NO OTHER COMPLAINTS OR CONCERNS EXPRESSED AND SHE'S RESTING W/O S/S DISTRESS AT THIS TIME.
--- NOTE | 2025-06-08 06:00 | NUR ---
SHIFT SUMMARY: PT AOX4, 1PA WITH FWW. NEEDING SOME OXYGEN TITRATING AND THEN BUMPING BACK UP CONSTANTLY. CURRENTLY ON 6L WITH AN OXYMASK SINCE SHE TOLERATES THAT BETTER THAN THE NASAL CANNULA. PT WORE CPAP MOST OF THE NIGHT WITHOUT ISSUE. PT IS PLEASANT AND COOPERATIVE IN CARE. NO ACUTE OVERNIGHT EVENTS. PT IN BED RESTING, BED IN LOWEST POSITION, CALL LIGHT IN REACH. CONTINUING CARE.
[2025-06-08 07:19] VITALS: BP 112/82
[2025-06-08] MEDS ORDERED: ACET325 PO (12:50)
[2025-06-08] MEDS ORDERED: DOCU100 PO (12:50)
[2025-06-08] MEDS ORDERED: Folbee Plus Tabl5 MG PO (12:53)
[2025-06-08] MEDS ORDERED: OXYC5 PO (12:54)
[2025-06-08 15:13] VITALS: BP 132/85
--- NOTE | 2025-06-08 16:10 | NUR ---
RN REPORT: FULL REPORT CALLED TO STEPHANIE STANLEY TO HARJINDER SMALLS @ [id number]. ALL QUESTIONS ANSWERED. CALL BACK NUMBER PROVIDED TO MEDICAL FLOOR IF THERE MAYBE FURTHER QUESTIONS.
--- NOTE | 2025-06-08 19:26 | NUR ---
DISCHARGE NOTE: PT DISCHARGED TO [facility] AT 1900, TRANSPORTED VIA - PT SELF TRANSFERRED TO STANDBY WITH FWW. ON 4L NC. ALL BELONGINGS SENT WITH TRANSPORT INCLUDING HOME CPAP. PT ALERT AND ORIENTED X4, PREMEDICATED WITH OXYCODONE AND TYLENOL PRIOR TO DISCHARGE.
== END 2025-06-08 19:05 | DRG 189 ==
LOC: ER 22:08 → PCU 06-05 03:41 → MEDS 06-07 08:13 → ENPENDDIS 06-08 11:56 → MEDS 06-08 19:05
PROVIDERS: Internal Medicine; Student in an Organized Health Care Education/Training Program; ADMIT Student in an Organized Health Care Education/Training Program
DX: J96.21 Acute and chronic respiratory failure with hypoxia (principal); S32.021A Stable burst fracture of second lumbar vertebra, initial encounter for closed fracture; N17.9 Acute kidney failure, unspecified; R45.851 Suicidal ideations; I50.32 Chronic diastolic (congestive) heart failure; E66.2 Morbid (severe) obesity with alveolar hypoventilation; I27.23 Pulmonary hypertension due to lung diseases and hypoxia; J96.22 Acute and chronic respiratory failure with hypercapnia; I11.0 Hypertensive heart disease with heart failure; M25.551 Pain in right hip; M54.50 Low back pain, unspecified; F17.210 Nicotine dependence, cigarettes, uncomplicated; F32.A Depression, unspecified; J44.9 Chronic obstructive pulmonary disease, unspecified; F41.9 Anxiety disorder, unspecified; R73.9 Hyperglycemia, unspecified; F10.10 Alcohol abuse, uncomplicated; E87.5 Hyperkalemia; Z91.51 Personal history of suicidal behavior; Z79.84 Long term (current) use of oral hypoglycemic drugs; Z79.899 Other long term (current) drug therapy; W18.30XA Fall on same level, unspecified, initial encounter
CPT/HCPCS: 36415; 71045; 72131; 72192; 73502; 80048; 80053; 82607; 82746; 82803; 82947; 83036; 83735; 84132; 85025; 85027; 94640; 94660; 94664; 94762; 96374; 97110; 97116; 97161; 97165; 97530; 97535; 99285-25; A9270; J1650; J2270; J7120